=== PATIENT | male | born 1945 | race Caucasian/White ===

== ENCOUNTER 2024-01-24 23:51 | Inpatient (IN) | payer MEDICARE, OTHER, MEDICAID, SELFPAY ==
--- NOTE | ~2024-01-24 | XR_ITS ---
XR chest 2V 01/25/2024 01:26 Indication: Shortness of breath Procedure: PA and lateral views of the chest Comparison: 05/12/2019 Findings: Heart size normal. Mild interstitial infiltrates with small pleural effusions mild peribron chial thickening. Calcified subcarinal lymph nodes, consistent with chronic granulomatous disease. No acute osseous abnormality. Impression: 1: Probable mild interstitial edema. Reviewed, dictated and finalized at location B. Impression: 1: Probable mild interstitial edema.
--- NOTE | ~2024-01-24 | CT_ITS ---
EXAMINATION: CTA chest PE protocol DATE: 01/25/2024 06:12 CDT INDICATION: Hypoxia. Elevated d-dimer. TECHNIQUE: Computed tomographic angiography (CTA) of the chest was performed with 100 mL Omnipaque-35 0 intravenous contrast. The dose-length product was 319.47 mGy-cm. Maximum intensity projection 3D-re constructions of the aorta and other arteries were constructed by the technologist on a separate work station. Automated exposure control and iterative reconstruction technique were employed. COMPARISON: None. FINDINGS: Moderate pleural effusions. Study technically adequate without evidence for pulmonary embol ism. Dependent atelectasis. Cardiomegaly. Calcified subcarinal lymph nodes, consistent with chronic g ranulomatous disease. Upper abdomen is unremarkable. Mild mediastinal lymphadenopathy, likely reactiv e. There are patchy groundglass opacities with interlobular septal thickening in the lung bases, suspici ous for edema. IMPRESSION: 1. Probable mild interstitial edema. 2: Moderate pleural effusions. 3: Mediastinal lymphadenopathy, likely reactive. Reviewed, dictated and finalized at location B.
--- NOTE | ~2024-01-24 | US_ITS ---
EXAMINATION: US renal BI DATE: 01/27/2024 20:22 INDICATION: Renal failure TECHNIQUE: Multiple ultrasound grayscale images of the kidneys were obtained. COMPARISON: None. FINDINGS: The right kidney measures 9.3 x 5.5 x 5.0 cm. The left kidney measures 9.9 x 5.5 x 5.8 cm. The kidney s demonstrate normal echogenicity. 2.4 cm anechoic cyst at the lower pole of the left kidney. There i s no hydronephrosis in either kidney. No stones identified. The bladder is normal. IMPRESSION: 1. 2.4 cm left renal cyst. Otherwise normal kidneys without hydronephrosis. Reviewed, dictated and finalized at location A.
[2024-01-24 23:54] VITALS: BP 176/71; PULSE 77; RESP 18; TEMP 36.4; O2SAT 94
[2024-01-25] VITALS (20 sets, daily range): BP systolic 133–173; BP diastolic 66–127; PULSE 61–72; RESP 12–26; TEMP 36.3–36.8; O2SAT 92–100; BMI 25.8
--- NOTE | 2024-01-25 | ECHO_ITS ---
Patient Info Name: Mata Arevalo Age: 78 years : 1945 Gender: Male Ht: 68 in Wt: 169 lbs BSA: 1.93 m2 HR: 72 bpm BP: 159 / 69 mmHg Technical Quality: Good Exam Date: 01/25/2024 4:25 PM Exam Location: Echo Lab Patient Status: Inpatient Admit Date: 01/25/2024 Staff Ordering Physician: Nova Carlos MD Timing Adjuster: Gonzalez García RDCS Attending Provider: Nova Carlos MD Exam Type: CA echo doppler color flow Study Info Indications - heart failure Complete two-dimensional, color flow and Doppler transthoracic echocardiogram is performed. Summary 1. Complete two-dimensional, color flow and Doppler transthoracic echocardiogram is performed. 2. Left ventricular systolic function is mildly globally reduced, estimated at 45-50%. 3. Left ventricular chamber dimension is mildly enlarged. 4. The left ventricular diastolic function is abnormal. 5. E/e' 13 is mildly elevated. 6. Global longitudinal strain is abnormal at -14.1%. 7. Left atrial chamber dimension is mildly enlarged. 8. Right atrial chamber dimension is mildly enlarged. 9. There is moderate aortic valve sclerosis. 10. There is trace aortic valve regurgitation. 11. There is mild mitral valve regurgitation. 12. There is trace tricuspid valve regurgitation. 13. No pulmonary hypertension, estimated pulmonary arterial systolic pressure is 21 mmHg. 14. There is trace pulmonic regurgitation. Left Ventricle E/e' 13 is mildly elevated. Global longitudinal strain is abnormal at -14.1%. Left ventricular systolic function is mildly globally reduced, estimated at 45-50%. Left ventricular chamber dimension is mildly enlarged. The left ventricular diastolic function is abnormal. Right Ventricle Right ventricular systolic function is normal and with normal TAPSE 2.5 cm. Right ventricular chamber dimension is normal. Left Atria Left atrial chamber dimension is mildly enlarged. Right Atria Right atrial chamber dimension is mildly enlarged. Aortic Valve The aortic valve is trileaflet. There is moderate aortic valve sclerosis. There is no aortic valve stenosis. There is trace aortic valve regurgitation. Pulmonic Valve There is trace pulmonic regurgitation. Mitral Valve There is no mitral valve stenosis. There is mild mitral valve regurgitation. Tricuspid Valve There is trace tricuspid valve regurgitation. No pulmonary hypertension, estimated pulmonary arterial systolic pressure is 21 mmHg. Pericardium/Pleural There is no pericardial effusion. Inferior Vena Cava Normal inferior vena cava with >50% collapse upon inspiration consistent with normal right atrial pressure, 5 mmHg. Aorta The aortic root size at the sinus of Valsalva is normal. Left Ventricular Outflow Tract Name Value Normal LVOT 2D LVOT Diameter 2.3 cm LVOT Doppler LVOT Peak Gradient 4 mmHg LVOT Mean Gradient 2 mmHg LVOT VTI 22 cm LVOT VTI/AV VTI Ratio 0.7 LVOT Stroke Volume 88 ml LVOT CO 6.1 l/min LVOT CI 3.2 l/min/m2 Pulmonic Valve -
--- NOTE | 2024-01-25 00:26 | ECG_ITS ---
Test Date: 2024-01-25 03:22:57 Measurements Intervals [place] Rate: 62 P: 101 NH: 232 QRS: -13 QRSD: 117 T: 32 QT: 462 QTc: 472 Interpretive Statements SINUS RHYTHM WITH FIRST DEGREE AV BLOCK POSSIBLE ANTEROSEPTAL MYOCARDIAL INFARCTION , OF INDETERMINATE AGE BORDERLINE ST ABNORMALITY- LATERAL LEADS BASELINE ARTIFACT- I, III, AVR, AVL ABNORMAL ECG No previous ECG available for comparison Electronically Signed On 01-25-2024 07:45:11 CDT by Edin Do D.O.
--- NOTE | 2024-01-25 02:27 | ED.SOB ---
HPI - SOB/Dyspnea General Chief Complaint: Shortness of Breath/Dyspnea Stated Complaint: SOB x days Time Seen by Provider: 01/25/24 02:23 Source: patient and family Mode of arrival: EMS Limitations: no limitations History of Present Illness HPI Narrative: Patient presents with shortness of breath for few days. Has been having some coughing spasms. Denies orthopnea. Baseline lung injury both from scar tissue from [place] with some possible superimposed tuberculosis. He has some unilateral leg swelling which has been chronic for the last year ever since having right hip fracture status post surgery. He had worsening lower extremity edema on Saturday for which he saw his primary care physician Viji Renteria through the [facility] in [place] and she prescribed him a diuretic but he has not yet received this due to issues with obtaining prescriptions through the OR. EMS noted that he had wheezes and was 94% on room air. They gave a DuoNeb treatment and oxygenation improved to 97%. He has a rash on his right inner arm. He is on apixaban as anticoagulation. He denies any chest pain. History of heart failure and ischemic heart disease with a previous reported ejection fraction of 30% per family member/friend presents with him but she reports that it improved 45% after he he was hospitalized and had undergone amiodarone and cardioversion. He has a history of kidney disease and heart disease. He has a history of diabetes mellitus, previously on Trulicity but change to Ozempic. Support member is adamant that patient not receive insulin as he had responded with profound hypoglycemia in the 20s when previously administered. Related Data Home Medications Medication Instructions Recorded Confirmed amiodarone 200 mg tablet (Pacerone) 200 mg PO DAILY 01/25/24 01/25/24 apixaban 5 mg tablet 5 mg PO BID 01/25/24 01/25/24 glimepiride 4 mg tablet 4 mg PO DAILY 01/25/24 01/25/24 metoprolol succinate 200 mg 100 mg PO DAILY 01/25/24 01/25/24 tablet,extended release 24 hr polyethylene glycol 3350 17 gram 17 g PO QAM PRN Constipation 01/25/24 01/25/24 oral powder packet (Miralax) semaglutide 1 mg/dose (2 mg/1.5 1 mg subcut WEEKLY 01/25/24 01/25/24 mL) subcutaneous pen injector trazodone 100 mg tablet 100 mg PO HS 01/25/24 01/25/24 vitamin B complex-vitamin C-folic 1 tablet PO DAILY 01/25/24 01/25/24 acid 1 mg tablet Allergies Allergy/AdvReac Type Severity Reaction Status Date / Time No Known Allergies Allergy Verified 01/15/23 12:24 [facility] Past Medical History Medical History Hyperlipidemia Hypertension Intertrochanteric fracture Pancreatitis Type 2 diabetes mellitus Surgical History Surgical History H/O eye surgery Family History Family History Mother Diabetes mellitus Breast cancer Father Diabetes mellitus Sibling Diabetes mellitus Cerebrovascular accident Sibling Diabetes mellitus Pneumonia Sibling Diabetes mellitus CHF (congestive heart failure) Sibling Diabetes mellitus Cardiomegaly Social History Social History Smoking status: Never smoker Alcohol intake: never Substance use: never Substance use type: does not use Do You Feel Safe in your Home?: Yes Lack of Transportation: No Lack of Food: Never True Current Housing: I Have Housing Concerned About Future Housing: No Difficulty Paying Gas/Electric Bills: No Difficulty Paying for Meds: No Currently Unemployed: No Education: Decline to Answer Difficulty w/ Childcare or Family Care: No Living arrangements: with family Occupation/Education: retired Gender identity (if verbalized by the patient): Male Spiritual care concerns: No Agree to blood products: Yes Exam Narrative: GENERA
[2024-01-25 02:31] LABS: Basophils Percent Auto 0.3 % (0.2-1.2); Eosinophils Absolute Auto 0.1 K/mm3 (0-0.3); Eosinophils Percent Auto 0.6 % (0-4.4); Hematocrit 34.7 % (42.0-52.0); Hemoglobin 11.6 g/dL (14.0-18.0); Immature Granulocyte Absolute 0.07 K/mm3 (0.00-0.031); Immature Granulocyte Percent A 0.6 % (0-0.5); Lymphocytes Absolute Auto 0.73 K/mm3 (0.9-3.2); Lymphocytes Percent Auto 6.4 % (18.3-44.2); Mean Corpuscular HGB Conc 33.4 g/dl (32-36); Mean Corpuscular Volume 98.6 fl (80-100); Mean Platelet Volume 10.8 fl (7.4-10.4); Monocytes Absolute Auto 0.8 K/mm3 (0.1-0.6); Monocytes Percent Auto 7.1 % (2.6-8.5); Neutrophils Absolute Auto 9.8 K/mm3 (1.3-6.7); Platelet Count Result 184 k/mm3 (150-375); Red Blood Count 3.52 M/mm3 (4.6-6.20); Red Cell Distribution Width 12.2 % (11.5-14.5); White Blood Count 11.5 K/mm3 (4.5-10.0)
[2024-01-25 02:43] LABS: Alanine Aminotransferase 18 U/L (6-50); Albumin Level 4.1 g/dL (3.5-5.1); Alkaline Phosphatase 129 U/L (38-126); Anion Gap 9 mmol/L (4-12); Aspartate Amino Transferase 24 U/L (17-59); Bilirubin,Total 0.5 mg/dL (0.2-1.3); Blood Urea Nitrogen 34 mg/dL (9-20); Calcium 9.1 mg/dL (8.4-10.2); Carbon Dioxide 28 mmol/L (22-30); Chloride 99 mmol/L (98-107); Estimated CRCL calculation 29 ml/min; Estimated Glomerular Filt Rate 35; Glucose 284 mg/dL (65-110); Potassium 4.7 mmol/L (3.4-5.0); Sodium 136 mmol/L (137-145)
[2024-01-25 03:26] LABS: INR 1.4; Prothrombin Time 17.3 Seconds (11.1-14.7)
[2024-01-25 03:27] LABS: Magnesium 2.4 mg/dL (1.6-2.3); Partial Thromboplastin Time 38.3 Seconds (22.3-36.8)
[2024-01-25 03:29] LABS: D Dimer 0.57 ug/mL (<0.48)
[2024-01-25 03:37] LABS: NT Pro B Type Natriuretic Pept 7810 pg/mL (19.9-100)
[2024-01-25] MEDS: SODIUM CHLORIDE 0.9% IV 1,000 ML 999 ML IV CONT (03:56)
[2024-01-25 04:15] LABS: Influenza A QL RT-PCR Negative (Negative); Influenza B QL RT-PCR Negative (Negative); RSV RNA, RT-PCR Negative (Negative); SARS-CoV-2 RNA PCR Negative (Negative)
[2024-01-25] MEDS: FUROSEMIDE INJ 40 MG/4 ML VIAL IV PUSH (04:35)
--- NOTE | 2024-01-25 08:11 | PC.NURSE ---
0715: Assumed care of pt. Per RN report pt received 250ml normal saline IV bolus tolerated well. Pt with diminished lung sounds in bilateral bases. Ambulated to bathroom with x1 assist. Pt states usually uses a walker.
--- NOTE | 2024-01-25 10:26 | PC.NURSE ---
This patient, Mata Arevalo, was admitted to [facility] Surg Room 330-02. Patient/family oriented to hospital policies and general routines including ID bracelet, bed and alarms, visiting hours, pain management, procedures, bathroom and other care routines, personal items, smoking policy, room service/diet, and visiting hours. Information on how to activate the Rapid Response Team has been discussed. Patient/Family are encouraged to report perceived risks to care and to ask questions if they do not understand what they are told or what they should do.
--- NOTE | 2024-01-25 15:52 | PM.IMHP ---
H&P: HPI History of Present Illness Date/Time: 01/25/24 15:52 Chief Complaint: Shortness of breath Narrative: This is a very pleasant 78-year-old male with a past medical history AFib on apixaban, CKD, hypothyroidism, constipation, hyperlipidemia, hypertension, [id number] diabetes mellitus, heart failure borderline reduced ejection fraction with 45-50% EF and diastolic dysfunction on surface echo on 01/25/2024. The patient is a patient of the [place]. the patient has been off of Lasix but developed shortness of breath. He was prescribed Lasix by his primary doctor at the [facility] but it has not yet been delivered to his home. He subsequently presents to [place] with the complaint of shortness of breath. He is admitted on 01/25/2024 for acute decompensated heart failure. Review of Systems Review of Systems: All systems reviewed & are unremarkable except as noted in HPI and below (Subjective) PMFSH Past Medical History Medical History Intertrochanteric fracture Surgical History Surgical History H/O eye surgery Family History Family History Mother Diabetes mellitus Breast cancer Father Diabetes mellitus Sibling Diabetes mellitus Cerebrovascular accident Sibling Diabetes mellitus Pneumonia Sibling Diabetes mellitus CHF (congestive heart failure) Sibling Diabetes mellitus Cardiomegaly Social History Social History (Updated 01/25/24 @ 10:27 by Nelsy Crooks RN) Smoking status: Never smoker Alcohol intake: never Substance use: never Substance use type: does not use Do You Feel Safe in your Home?: Yes Lack of Transportation: No Lack of Food: Never True Current Housing: I Have Housing Concerned About Future Housing: No Difficulty Paying Gas/Electric Bills: No Difficulty Paying for Meds: No Currently Unemployed: No Education: Decline to Answer Difficulty w/ Childcare or Family Care: No Living arrangements: with family Occupation/Education: retired Gender identity (if verbalized by the patient): Male Spiritual care concerns: No Agree to blood products: Yes Meds Home Medications and Allergies Home Medications Medication Instructions Recorded Confirmed Type furosemide 20 mg tablet 20 mg PO DAILY #30 tabs 05/19/19 01/25/24 Rx acetaminophen 325 mg tablet (Mapap 975 mg PO Q6H PRN Pain Rated 5 Or 01/13/23 01/25/24 Rx (acetaminophen)) Less #90 tabs diabetic supplies, miscellan. #1 ea 01/13/23 01/25/24 Rx fluticasone propionate 50 2 spray intranasal HS #16 grams 01/13/23 01/25/24 Rx mcg/actuation nasal spray,suspension levothyroxine 50 mcg tablet 50 mcg PO DAILY@0630 #30 tabs 01/13/23 01/25/24 Rx (Synthroid) lidocaine 4 % topical patch 2 patch transdermal DAILY #14 ea 01/13/23 01/25/24 Rx (Lidocaine Pain Relief) sennosides 8.6 mg-docusate sodium 1 tab-cap PO BID #30 tabs 01/13/23 01/25/24 Rx 50 mg tablet (Senokot-S) amiodarone 200 mg tablet (Pacerone) 200 mg PO DAILY 01/25/24 01/25/24 History apixaban 5 mg tablet 5 mg PO BID 01/25/24 01/25/24 History glimepiride 4 mg tablet 4 mg PO DAILY 01/25/24 01/25/24 History metoprolol succinate 200 mg 100 mg PO DAILY 01/25/24 01/25/24 History tablet,extended release 24 hr polyethylene glycol 3350 17 gram 17 g PO QAM PRN Constipation 01/25/24 01/25/24 History oral powder packet (Miralax) semaglutide 1 mg/dose (2 mg/1.5 1 mg subcut WEEKLY 01/25/24 01/25/24 History mL) subcutaneous pen injector trazodone 100 mg tablet 100 mg PO HS 01/25/24 01/25/24 History vitamin B complex-vitamin C-folic 1 tablet PO DAILY 01/25/24 01/25/24 History acid 1 mg tablet Allergies Allergy/AdvReac Type Severity Reaction Status Date / Time No Known Allergies Allergy Verified 01/15/23 12:24 Vital Signs Vital Signs -
[2024-01-25 16:59] LABS: Glucose Point of Care 285 mg/dl (65-105)
[2024-01-25] MEDS: SENNA/DOCUSATE SODIUM TABLET 1 TAB PO (17:30)
[2024-01-25] MEDS: METOPROLOL SUCCINATE EXT REL 100 MG TABCR PO (17:30)
[2024-01-25] MEDS: INSULIN ASPART (*BKC) 100 UNITS/ML SUB-Q (17:30)
[2024-01-25] MEDS: FUROSEMIDE INJ 40 MG/4 ML VIAL 20 MG IV PUSH (17:31)
[2024-01-25] MEDS: traZODone HCL 50 MG TABLET 100 MG PO (20:35)
[2024-01-25] MEDS: APIXABAN 5 MG TABLET PO (20:35)
[2024-01-25] MEDS: FLUTICASONE PROPIONATE 0.05% NA SPR 16 GM BTL (*BKC) 2 SPRAY NASAL (20:37)
[2024-01-25 21:09] LABS: Glucose Point of Care 200 mg/dl (65-105)
[2024-01-26] VITALS (12 sets, daily range): BP systolic 98–152; BP diastolic 50–70; PULSE 52–88; RESP 18; TEMP 36.3–37.1; O2SAT 91–96
[2024-01-26] MEDS: LEVOTHYROXINE SODIUM 50 MCG TABLET PO (05:16)
[2024-01-26 06:22] LABS: Basophils Percent Auto 0.6 % (0.2-1.2); Eosinophils Absolute Auto 0.2 K/mm3 (0-0.3); Eosinophils Percent Auto 3.2 % (0-4.4); Hematocrit 32.8 % (42.0-52.0); Hemoglobin 10.8 g/dL (14.0-18.0); Immature Granulocyte Absolute 0.03 K/mm3 (0.00-0.031); Immature Granulocyte Percent A 0.4 % (0-0.5); Lymphocytes Absolute Auto 1.03 K/mm3 (0.9-3.2); Lymphocytes Percent Auto 14.2 % (18.3-44.2); Mean Corpuscular HGB Conc 32.9 g/dl (32-36); Mean Corpuscular Hemoglobin 32.8 pg (26-34); Mean Corpuscular Volume 99.7 fl (80-100); Mean Platelet Volume 11.2 fl (7.4-10.4); Monocytes Absolute Auto 0.8 K/mm3 (0.1-0.6); Monocytes Percent Auto 10.7 % (2.6-8.5); Neutrophils Absolute Auto 5.2 K/mm3 (1.3-6.7); Neutrophils Percent Auto 70.9 % (45.5-73.1); Platelet Count Result 169 k/mm3 (150-375); Red Blood Count 3.29 M/mm3 (4.6-6.20); Red Cell Distribution Width 12.4 % (11.5-14.5); White Blood Count 7.3 K/mm3 (4.5-10.0)
[2024-01-26 06:37] LABS: Anion Gap 7 mmol/L (4-12); Blood Urea Nitrogen 35 mg/dL (9-20); Calcium 8.9 mg/dL (8.4-10.2); Carbon Dioxide 31 mmol/L (22-30); Chloride 99 mmol/L (98-107); Estimated CRCL calculation 24 ml/min; Estimated Glomerular Filt Rate 28; Glucose 175 mg/dL (65-110); Magnesium 2.2 mg/dL (1.6-2.3); Sodium 137 mmol/L (137-145)
[2024-01-26 07:13] LABS: Procalcitonin 0.1 ng/mL
[2024-01-26 07:24] LABS: Glucose Point of Care 187 mg/dl (65-105)
[2024-01-26] MEDS: METOPROLOL SUCCINATE EXT REL 100 MG TABCR PO (09:46)
[2024-01-26] MEDS: VITAMIN B CMPLX/VIT C/FOLIC AC 1 CAPSULE 1 CAP PO (09:46)
[2024-01-26] MEDS: APIXABAN 5 MG TABLET PO ×2 (09:47→21:09)
[2024-01-26] MEDS: SENNA/DOCUSATE SODIUM TABLET 1 TAB PO (09:47)
[2024-01-26] MEDS: AMIODARONE HCL 200 MG TABLET PO (09:47)
[2024-01-26] MEDS: LIDOCAINE 5% PATCH 2 PATCH TRANSDERM (09:49)
[2024-01-26 12:07] LABS: Glucose Point of Care 216 mg/dl (65-105)
[2024-01-26] MEDS: INSULIN ASPART (*BKC) 100 UNITS/ML SUB-Q ×2 (12:48→18:27)
[2024-01-26 16:33] LABS: Glucose Point of Care 210 mg/dl (65-105)
--- NOTE | 2024-01-26 18:03 | PM.IMPN ---
Progress Note: A&P Assessment and Plan (1) Leukocytosis: Code(s): D72.829 - Elevated white blood cell count, unspecified Status: Acute (2) Acute kidney injury superimposed on CKD: Code(s): N17.9 - Acute kidney failure, unspecified; N18.9 - Chronic kidney disease, unspecified Status: Acute (3) Pseudohyponatremia: Code(s): R79.89 - Other specified abnormal findings of blood chemistry Status: Acute (4) Acute exacerbation of CHF (congestive heart failure): Qualifiers: Heart failure type: unspecified Qualified Code(s): I50.9 - Heart failure, unspecified Code(s): I50.9 - Heart failure, unspecified Status: Acute Plan This is a very pleasant 78-year-old male with a past medical history AFib on apixaban, CKD, hypothyroidism, constipation, hyperlipidemia, hypertension, [id number] diabetes mellitus, heart failure borderline reduced ejection fraction with 45-50% EF and diastolic dysfunction on surface echo on 01/25/2024. The patient is a patient of the [place]. the patient has been off of Lasix but developed shortness of breath. He was prescribed Lasix by his primary doctor at the [place] but it has not yet been delivered to his home. He subsequently presents to [place] [facility] with the complaint of shortness of breath. He is admitted on 01/25/2024 for acute decompensated heart failure. BNP on admission 6999January 25: Leukocytosis resolved. Still has a cough but it is improved. Quad viral screen on admission negative. Hypertonic hyponatremia resolved. Continue Accu-Cheks and insulin sliding scale. The patient's acute decompensation has resolved however now he has developed an ALYSSA and CKD. Serum creatinine on admission 1.9 and now 2.3. His baseline appears to be around 1.5-1.9 in 2022. Will conduct further workup with UA, urine eosinophilic, urine creatinine and urea. Patient will need to stay another day to trend renal function. Obviously, hold the Lasix. He is not on spironolactone or Jardiance so blood pressure and GFR allowing we could start this prior to discharge with a combination of p.r.n. Lasix. Monitor urine output and daily weights. Full code. Cardiac diabetic diet. Apixaban. Stable on medical floor. Subjective Date/time seen: 01/26/24 18:03 Interval history: No acute overnight events. Patient believes he is breathing better. They his daughter is present in the room. Daughter reports his swelling is greatly improved. Patient denies a dry cough still but it is improved. Review of Systems Review of Systems: All systems reviewed & are unremarkable except as noted in HPI and below (Subjective) Exam Const: General: comfortable and no acute distress Other: A&O x3. Eyes: Pupils: Equal, round and reactive pupils present Neck: Neck: supple Resp: Effort & Inspection: normal respiratory effort Auscultation: clear to auscultation bilaterally Cardio: Rate: regular rate Rhythm: regular rhythm Heart sounds: no gallops, no murmurs and no rubs GI: GI Palp: Yes Soft to palpation and No Tenderness to palpation present (GI) Extrem: General: no edema Objective Data Vital Signs Vital Signs: Vital Signs - 24 hr 01/25/24 20:00 01/25/24 22:00 01/25/24 20:00 Temperature 98.3 F Pulse Rate 66 61 Respiratory Rate 16 Blood Pressure 159/84 H Pulse Oximetry 94 Oxygen Delivery Room Air 01/26/24 00:00 01/26/24 04:00 01/26/24 05:15 Temperature 97.3 F L Pulse Rate 58 L 52 L 60 Respiratory Rate 18 Blood Pressure 98/50 L Pulse Oximetry 91 Oxygen Delivery 01/26/24 09:45 01/26/24 09:46 01/26/24 09:47 Temperature Pulse Rate 60 60 Respiratory Rate Blood Pressure 140/70 Pulse Oximetry Oxygen Delivery 01/26/24 08:00 01/26/24 12:02 01/26/24 14:00 Temperature 98.8 F Pulse Rate 58 L 61 88 Respiratory Rate 18 Blood Pressure 133/67 Pulse Oximetry 91 Oxygen Delivery Intake/Output
[2024-01-26 20:43] LABS: Appearance Urine Clear (Clear); Bacteria Urine None Seen /hpf; Bilirubin Urine Negative (Negative); Blood Urine Negative (Negative); Color Urine Yellow (Yellow); Glucose Urine UA Trace mg/dL (Negative); Ketones Urine Negative (Negative); Leukocyte Esterase Ur Negative LEU/UL (Negative); Nitrate Urine Negative (Negative); Non Pathogenic Casts 0-2; Protein Urine 1+ mg/dL (Negative); Specific Grav Ur 1.021 (1.001-1.035); Squamous Epithelial Cell Urine None Seen /hpf (Few); WBC Urine 0-5 /hpf (0-3)
[2024-01-26 20:45] LABS: Add Urine Microscopic? YES; Creatinine Urine 146.1 mg/dL; Urea Random Urine 774 MG/DL
[2024-01-26 20:56] LABS: Glucose Point of Care 195 mg/dl (65-105)
[2024-01-26] MEDS: traZODone HCL 50 MG TABLET 100 MG PO (21:09)
[2024-01-26] MEDS: FLUTICASONE PROPIONATE 0.05% NA SPR 16 GM BTL (*BKC) 2 SPRAY NASAL (21:09)
[2024-01-26] MEDS: TRIAMCINOLONE ACET 0.1% OINT 15 GM TUBE 1 APPLIC TOPICAL (21:09)
[2024-01-26 21:12] LABS: Eosinophil Urine None Seen % (None Seen); Urine Eos QC 2nd Tech Confirmed
[2024-01-27] VITALS (11 sets, daily range): BP systolic 127–159; BP diastolic 51–66; PULSE 53–63; RESP 14–20; TEMP 36.4–37.1; O2SAT 94–98
[2024-01-27 05:47] LABS: Hematocrit 31.9 % (42.0-52.0); Hemoglobin 10.6 g/dL (14.0-18.0); Mean Corpuscular HGB Conc 33.2 g/dl (32-36); Mean Corpuscular Hemoglobin 32.8 pg (26-34); Mean Corpuscular Volume 98.8 fl (80-100); Platelet Count Result 172 k/mm3 (150-375); Red Blood Count 3.23 M/mm3 (4.6-6.20); Red Cell Distribution Width 12.2 % (11.5-14.5); White Blood Count 6.5 K/mm3 (4.5-10.0)
[2024-01-27] MEDS: LEVOTHYROXINE SODIUM 50 MCG TABLET PO (05:49)
[2024-01-27 06:00] LABS: Anion Gap 6 mmol/L (4-12); Blood Urea Nitrogen 39 mg/dL (9-20); Calcium 8.6 mg/dL (8.4-10.2); Carbon Dioxide 30 mmol/L (22-30); Chloride 100 mmol/L (98-107); Estimated CRCL calculation 23 ml/min; Estimated Glomerular Filt Rate 26; Glucose 163 mg/dL (65-110); Magnesium 2.3 mg/dL (1.6-2.3); Potassium 3.9 mmol/L (3.4-5.0); Sodium 136 mmol/L (137-145)
[2024-01-27 08:37] LABS: Glucose Point of Care 178 mg/dl (65-105)
[2024-01-27] MEDS: VITAMIN B CMPLX/VIT C/FOLIC AC 1 CAPSULE 1 CAP PO (08:48)
[2024-01-27] MEDS: APIXABAN 5 MG TABLET PO ×2 (08:48→20:21)
[2024-01-27] MEDS: AMIODARONE HCL 200 MG TABLET PO (08:48)
[2024-01-27] MEDS: SENNA/DOCUSATE SODIUM TABLET 1 TAB PO ×2 (08:48→17:17)
[2024-01-27] MEDS: LIDOCAINE 5% PATCH 2 PATCH TRANSDERM (08:49)
[2024-01-27] MEDS: METOPROLOL SUCCINATE EXT REL 100 MG TABCR PO (08:49)
[2024-01-27] MEDS: TRIAMCINOLONE ACET 0.1% OINT 15 GM TUBE 1 APPLIC TOPICAL ×2 (08:57→20:22)
[2024-01-27 11:59] LABS: Glucose Point of Care 294 mg/dl (65-105)
[2024-01-27] MEDS: INSULIN ASPART (*BKC) 100 UNITS/ML SUB-Q ×2 (12:03→20:21)
--- NOTE | 2024-01-27 14:36 | PM.CNNEP ---
Assessment and Plan Assessment and plan (1) CKD stage 3b, GFR 30-44 ml/min: Code(s): N18.32 - Chronic kidney disease, stage 3b Status: Acute Assessment and Plan: the patient has chronic kidney disease stage 3. It looks like his GFR has been running in the 30s and 40s for about the last year before he came in this time. Before year ago it was 60. It is unclear what is causing his chronic kidney disease. He of course does have diabetes and hypertension and also has AFib and hyperlipidemia so could have vascular disease in the kidneys as well. However usually the kidney function does not deteriorate this quickly, especially since his blood pressure and sugars have been relatively well controlled. There are other causes of kidney disease as well including glomerulonephritis, interstitial nephritis, infiltrative diseases, and obstruction. will check serology, immunofixation, CPK, urine protein to creatinine ratio, and a renal ultrasound. (2) ALYSSA (acute kidney injury): Code(s): N17.9 - Acute kidney failure, unspecified Status: Acute Assessment and Plan: The patient has an acutely higher creatinine this admission. The patient did receive contrast. He has a bland sediment. Most likely this is contrast nephropathy. There are other causes of course including obstruction interstitial nephritis etc. but with bland urine no rash no fever and no eosinophilia the likelihood is low. Will check urine electrolytes, renal ultrasound, and a CK. (3) Hypertension: Code(s): I10 - Essential (primary) hypertension Status: Acute Assessment and Plan: Systolic is running between 98 and 152. Will follow going forward and adjust meds as needed (4) Hyperlipidemia: Code(s): E78.5 - Hyperlipidemia, unspecified Status: Acute Assessment and Plan: the patient is not on a statin (5) Type 2 diabetes mellitus: Code(s): E11.9 - Type 2 diabetes mellitus without complications Status: Acute Assessment and Plan: the patient is on Accu-Cheks and sliding-scale insulin (6) Congestive heart failure: Code(s): I50.9 - Heart failure, unspecified Status: Acute Assessment and Plan: GFR is a little bit low, in the 40s. He is on metoprolol for this. History of Present Illness Reason for Consult Consult date: 01/27/24 Chief Complaint Chief complaint: Acute on Chronic Heart Failure Exac W Pleural Effu History of Present Illness Narrative: Kristopher is a very pleasant 78-year-old gentleman who has multiple medical problems including chronic kidney disease, hypothyroidism, constipation, congestive heart failure with an EF of 45-50% plus diastolic dysfunction, hyperlipidemia, hypertension, diabetes. The patient says he was doing well until a few days before admission when he started getting short of breath. His shortness of breath gradually worsened over the days and so he came to the ER because of this. He is evaluated in the ER and was found to have mild anemia, a chest x-ray showing mild interstitial edema, a creatinine of 1.9, and a BNP of 7810. It was worried that he might have a pulmonary embolus so he had a CT angio. This was negative. He was admitted to the floor and given diuretics. His creatinine yelena from 1.9-2.4 so renal consultation was requested. The patient says he has never had kidney disease before. However, he has had a creatinine of around 1.5-2 since December of 2022. He denies any bloody urine, foamy urine, kidney stones, or bladder infections. He does not have any pain with urination. He does not take any nonsteroidal anti-inflammatory agents. He has not had any changes in his medications lately. Review of Systems Constitutional: Constitutional: Reports no additional constitutional complaints Eyes: Eyes: Reports no additional eye complaints ENT: Reports system reviewed and no additional complaints, ex
--- NOTE | 2024-01-27 15:25 | PM.IMPN ---
Progress Note: A&P Assessment and Plan (1) Leukocytosis: Qualifiers: Leukocytosis type: unspecified Qualified Code(s): D72.829 - Elevated white blood cell count, unspecified Code(s): D72.829 - Elevated white blood cell count, unspecified Status: Acute (2) Acute kidney injury superimposed on CKD: Code(s): N17.9 - Acute kidney failure, unspecified; N18.9 - Chronic kidney disease, unspecified Status: Acute (3) Pseudohyponatremia: Code(s): R79.89 - Other specified abnormal findings of blood chemistry Status: Acute (4) Acute exacerbation of CHF (congestive heart failure): Qualifiers: Heart failure type: unspecified Qualified Code(s): I50.9 - Heart failure, unspecified Code(s): I50.9 - Heart failure, unspecified Status: Acute Plan This is a very pleasant 78-year-old male with a past medical history AFib on apixaban, CKD, hypothyroidism, constipation, hyperlipidemia, hypertension, [id number] diabetes mellitus, heart failure borderline reduced ejection fraction with 45-50% EF and diastolic dysfunction on surface echo on 01/25/2024. The patient is a patient of the [facility]. the patient has been off of Lasix but developed shortness of breath. He was prescribed Lasix by his primary doctor at the [facility] but it has not yet been delivered to his home. He subsequently presents to [place] [facility] with the complaint of shortness of breath. He is admitted on 01/25/2024 for acute decompensated heart failure. BNP on admission 7000 01/26: Leukocytosis and Hypertonic Hypernatremia resolved. Patient acute decompensation has resolved but lasix is on hold due to increase in creatine ( 1.90> 2.30> 2.40). We believe patient to be in ALYSSA on CKD due to contrast vs lasix . Nephrology is consulted and ordered to check serology, immunofixation, CPK, urine protein to creatinine ratio, and a renal ultrasound. As mentioned by Supervisor Engraving its unclear why his GFR running in 30s and 40s which has fallen from 60s from last year in spite of moderately controlled HTN and DM.Discussed with Supervisor Engraving who agrees continuing holding Lasix.Monitor urine output and daily weights.Continue trend Cr and BNP. Will consider Jardiance and Spironolactone once renal function recovers. Upon discharge patient needs to be followed by PCP ,Supervisor Engraving , and Agriculture Science Teacher. Full code. Cardiac diabetic diet. Apixaban. Stable on medical floor. Subjective Date/time seen: 01/27/24 15:25 Interval history: As per nursing no acute events in the night. Patient reports he is able to breath better than when he got admitted. Patient endorse dry cough. . Review of Systems Review of Systems: All systems reviewed & are unremarkable except as noted in HPI and below (Subjective) Exam Const: General: comfortable and no acute distress Other: A&O x3. Eyes: Pupils: Equal, round and reactive pupils present Neck: Neck: supple Resp: Effort & Inspection: normal respiratory effort Auscultation: clear to auscultation bilaterally Other: Scant crackles bilaterally Cardio: Rate: regular rate Rhythm: regular rhythm Heart sounds: no gallops, no murmurs and no rubs Neuro: Cranial nerves: Yes Equal, round and reactive pupils present Extrem: General: no edema Objective Data Vital Signs Vital Signs: Vital Signs - 24 hr 01/26/24 16:02 01/26/24 21:02 01/26/24 20:00 Temperature 98.1 F Pulse Rate 58 L 61 59 L Respiratory Rate 18 Blood Pressure 152/68 H Pulse Oximetry 96 Oxygen Delivery 01/26/24 20:00 01/27/24 00:00 01/27/24 04:00 Temperature Pulse Rate 61 55 L 58 L Respiratory Rate 18 Blood Pressure Pulse Oximetry 96 Oxygen Delivery Room Air 01/27/24 05:17 01/27/24 08:48 01/27/24 08:49 Temperature 98.3 F Pulse Rate 59 L 63 62 Respiratory Rate 17 Blood Pressure 127/53 L Pulse Oximetry 98 Oxygen Delivery 01/27/24 08:00 01/27/24 12:00 Temp
[2024-01-27 16:33] LABS: Glucose Point of Care 171 mg/dl (65-105)
[2024-01-27 16:46] LABS: Creatine Kinase 223 U/L (55-170)
[2024-01-27 16:54] LABS: Erythrocyte Sedimentation Rate 78 mm/hr (0-20)
[2024-01-27 16:55] LABS: Complement C3 92 mg/dL (88-165)
[2024-01-27 18:22] LABS: Creatinine Urine 83.2 mg/dL; Total Protein Urine Random 18 mg/dL; Ur Ttl Prot Creatinine Ratio 0.22 mg/mg (0-0.20); Urea Random Urine 635 MG/DL
[2024-01-27 18:25] LABS: Sodium Urine Random 39 meq/L
[2024-01-27 20:21] LABS: Glucose Point of Care 263 mg/dl (65-105)
[2024-01-27] MEDS: FLUTICASONE PROPIONATE 0.05% NA SPR 16 GM BTL (*BKC) 2 SPRAY NASAL (20:21)
[2024-01-27] MEDS: traZODone HCL 50 MG TABLET 100 MG PO (20:21)
[2024-01-28] VITALS (11 sets, daily range): BP systolic 133–142; BP diastolic 56–69; PULSE 54–62; RESP 18; TEMP 36.1–36.6; O2SAT 94–98
[2024-01-28] MEDS: LEVOTHYROXINE SODIUM 50 MCG TABLET PO (06:00)
[2024-01-28 06:26] LABS: Basophils Absolute Auto 0.1 K/mm3 (0.0-0.1); Basophils Percent Auto 0.9 % (0.2-1.2); Eosinophils Absolute Auto 0.3 K/mm3 (0-0.3); Eosinophils Percent Auto 4.4 % (0-4.4); Hematocrit 31.6 % (42.0-52.0); Hemoglobin 10.3 g/dL (14.0-18.0); Immature Granulocyte Absolute 0.02 K/mm3 (0.00-0.031); Immature Granulocyte Percent A 0.3 % (0-0.5); Lymphocytes Absolute Auto 1.25 K/mm3 (0.9-3.2); Lymphocytes Percent Auto 18.3 % (18.3-44.2); Mean Corpuscular HGB Conc 32.6 g/dl (32-36); Mean Corpuscular Hemoglobin 32.2 pg (26-34); Mean Corpuscular Volume 98.8 fl (80-100); Mean Platelet Volume 10.8 fl (7.4-10.4); Monocytes Absolute Auto 0.7 K/mm3 (0.1-0.6); Monocytes Percent Auto 10.7 % (2.6-8.5); Neutrophils Absolute Auto 4.5 K/mm3 (1.3-6.7); Neutrophils Percent Auto 65.4 % (45.5-73.1); Platelet Count Result 165 k/mm3 (150-375); Red Cell Distribution Width 11.9 % (11.5-14.5); White Blood Count 6.8 K/mm3 (4.5-10.0)
[2024-01-28 06:34] LABS: Albumin Level 3.5 g/dL (3.5-5.1); Anion Gap 7 mmol/L (4-12); Blood Urea Nitrogen 37 mg/dL (9-20); Calcium 8.7 mg/dL (8.4-10.2); Carbon Dioxide 27 mmol/L (22-30); Chloride 101 mmol/L (98-107); Estimated CRCL calculation 23 ml/min; Estimated Glomerular Filt Rate 26; Glucose 171 mg/dL (65-110); Phosphorus 3.6 mg/dL (2.5-4.5); Sodium 135 mmol/L (137-145)
[2024-01-28 07:29] LABS: Glucose Point of Care 190 mg/dl (65-105)
[2024-01-28] MEDS: AMIODARONE HCL 200 MG TABLET PO (08:13)
[2024-01-28] MEDS: VITAMIN B CMPLX/VIT C/FOLIC AC 1 CAPSULE 1 CAP PO (08:13)
[2024-01-28] MEDS: SENNA/DOCUSATE SODIUM TABLET 1 TAB PO ×2 (08:13→16:40)
[2024-01-28] MEDS: METOPROLOL SUCCINATE EXT REL 100 MG TABCR PO (08:15)
[2024-01-28] MEDS: APIXABAN 5 MG TABLET PO ×2 (08:15→21:03)
[2024-01-28] MEDS: LIDOCAINE 5% PATCH 2 PATCH TRANSDERM (08:16)
[2024-01-28] MEDS: TRIAMCINOLONE ACET 0.1% OINT 15 GM TUBE 1 APPLIC TOPICAL ×2 (08:19→21:04)
[2024-01-28 11:17] LABS: Glucose Point of Care 239 mg/dl (65-105)
--- NOTE | 2024-01-28 11:34 | P.PNNP_ITS ---
Progress Note: A&P Assessment and Plan (1) ALYSSA (acute kidney injury): Code(s): N17.9 - Acute kidney failure, unspecified Status: Acute Assessment and Plan: * as noted on admission * evaluation to date noted: * renal ultrasound without obstruction * urine electrolytes prerenal * moderate proteinuria * urine eosinophils negative * CPK mildly elevated but not enough to affect kidney function * bland urine sediment * suspicion falls on contrast nephropathy * follow trend in repeat labs and UOP (2) CKD stage 3b, GFR 30-44 ml/min: Code(s): N18.32 - Chronic kidney disease, stage 3b Status: Acute Assessment and Plan: * baseline creatinine runs ~ 1.5 - 1.9mg/dl in the last year * GFR runs 30 - 40cc/min range for the last year (although prior to that, GFR was running in the 60s) * presumably due to DM, HTN, vascular disease and age-related change * follow-up on serological evaluation (3) Hypertension: Code(s): I10 - Essential (primary) hypertension Status: Chronic Assessment and Plan: * reasonable control at this time * follow trend of hemodynamics (4) Congestive heart failure: Code(s): I50.9 - Heart failure, unspecified Status: Chronic Assessment and Plan: * appears compensated at this time * diuretics on hold due to #1 * follow respiratory status (5) Type 2 diabetes mellitus: Code(s): E11.9 - Type 2 diabetes mellitus without complications Status: Acute Assessment and Plan: * follow accu-cheks * glycemic control per hospitalists Will continue to follow. Subjective Date/time seen: 01/28/24 11:34 Interval history: Follow-up for acute kidney injury/acute renal failure on chronic kidney disease. Chart reviewed -- assuming care from Dr. Encinas; creatinine/renal function stable in the last 24 hours with reasonable urine output noted; no apparent distress noted at the time of my visit. Exam Narrative: General: elderly but WD/WN male in NAD Heart: normal S1 and S2; no rub Lungs: clear to auscultation Abdomen: soft, nontender, nondistended, positive bowel sounds Extremities: no cyanosis or clubbing; no edema Skin: warm and dry Objective Data Vital Signs Vital Signs: Vital Signs Temp Pulse Resp BP Pulse Ox O2 Del Method 01/28/24 08:15 61 136/66 98 01/28/24 08:15 Room Air 01/28/24 08:00 60 01/28/24 08:15 61 01/28/24 08:13 61 01/28/24 05:57 97.8 F 56 L 18 133/56 L 94 01/28/24 04:00 57 L 01/28/24 00:00 57 L 01/27/24 20:00 56 L 14 96 Room Air 01/27/24 20:00 63 01/27/24 20:25 97.6 F 56 L 14 159/66 H 96 01/27/24 16:00 53 L 01/27/24 14:00 98.7 F 55 L 20 127/51 L 94 Intake/Output Intake/Output: Intake & Output 01/25/24 01/26/24 01/27/24 01/28/24 23:59 23:59 23:59 23:59 Intake Total 1080 1080 1630 480 Output Total 2550 700 1525 600 Balance -1470 380 105 -120 Meds/Results Medications: Active Medications Generic Name Dose Route Start Last Admin Trade Name Freq PRN Reason Stop Dose Admin
--- NOTE | 2024-01-28 11:34 | PM.PNNEP ---
Progress Note: A&P Assessment and Plan (1) ALYSSA (acute kidney injury): Code(s): N17.9 - Acute kidney failure, unspecified Status: Acute Assessment and Plan: as noted on admission evaluation to date noted: renal ultrasound without obstruction urine electrolytes prerenal moderate proteinuria urine eosinophils negative CPK mildly elevated but not enough to affect kidney function bland urine sediment suspicion falls on contrast nephropathy follow trend in repeat labs and UOP (2) CKD stage 3b, GFR 30-44 ml/min: Code(s): N18.32 - Chronic kidney disease, stage 3b Status: Acute Assessment and Plan: baseline creatinine runs ~ 1.5 - 1.9mg/dl in the last year GFR runs 30 - 40cc/min range for the last year (although prior to that, GFR was running in the 60s) presumably due to DM, HTN, vascular disease and age-related change follow-up on serological evaluation (3) Hypertension: Code(s): I10 - Essential (primary) hypertension Status: Chronic Assessment and Plan: reasonable control at this time follow trend of hemodynamics (4) Congestive heart failure: Code(s): I50.9 - Heart failure, unspecified Status: Chronic Assessment and Plan: appears compensated at this time diuretics on hold due to #1 follow respiratory status (5) Type 2 diabetes mellitus: Code(s): E11.9 - Type 2 diabetes mellitus without complications Status: Acute Assessment and Plan: follow accu-cheks glycemic control per hospitalists Will continue to follow. Subjective Date/time seen: 01/28/24 11:34 Interval history: Follow-up for acute kidney injury/acute renal failure on chronic kidney disease. Chart reviewed -- assuming care from Dr. Encinas; creatinine/renal function stable in the last 24 hours with reasonable urine output noted; no apparent distress noted at the time of my visit. Exam Narrative: General: elderly but WD/WN male in NAD Heart: normal S1 and S2; no rub Lungs: clear to auscultation Abdomen: soft, nontender, nondistended, positive bowel sounds Extremities: no cyanosis or clubbing; no edema Skin: warm and dry Objective Data Vital Signs Vital Signs: Vital Signs Temp Pulse Resp BP Pulse Ox O2 Del Method 01/28/24 08:15 61 136/66 98 01/28/24 08:15 Room Air 01/28/24 08:00 60 01/28/24 08:15 61 01/28/24 08:13 61 01/28/24 05:57 97.8 F 56 L 18 133/56 L 94 01/28/24 04:00 57 L 01/28/24 00:00 57 L 01/27/24 20:00 56 L 14 96 Room Air 01/27/24 20:00 63 01/27/24 20:25 97.6 F 56 L 14 159/66 H 96 01/27/24 16:00 53 L 01/27/24 14:00 98.7 F 55 L 20 127/51 L 94 Intake/Output Intake/Output: Intake & Output 01/25/24 01/26/24 01/27/24 01/28/24 23:59 23:59 23:59 23:59 Intake Total 1080 1080 1630 480 Output Total 2550 700 1525 600 Balance -1470 380 105 -120 Meds/Results Medications: Active Medications Generic Name Dose Route Start Last Admin Trade Name Freq PRN Reason Stop Dose Admin Acetaminophen 650 mg 01/25/24 07:21 Acetaminophen 325 Mg Tablet PO Q4H PRN Mild Pain (1-3) or Fever Amiodarone HCl 200 mg 01/26/24 09:00 01/28/24 08:13 Amiodarone Hcl 200 Mg Tablet PO 200 mg DAILY IGLESIA Administration Apixaban 5 mg 01/25/24 21:00 01/28/24 08:15 Apixaban 5 Mg Tablet PO 5 mg Q12HR IGLESIA Administration Dextrose 12.5 gm 01/25/24 07:21 Dextrose 50% 25 Gm/50 Ml Syringe IV PUSH PRN PRN Hypoglycemia Protocol Fluticasone Propionate 2 spray 01/25/24 21:00 01/27/24 20:21 Fluticasone Propionate 0.05% Na Spr 16 Gm Btl (*Bkc) NASAL 2 spray HS IGLESIA Administration Furosemide 20 mg 01/25/24 17:00 01/26/24 09:49 Furosemide Inj 40 Mg/4 Ml Vial IV PUSH Not Given BID IGLESIA Glucagon 1 mg 01/25/24 07:21 Glucagon For Inj 1 Mg Vial IM
[2024-01-28] MEDS: INSULIN ASPART (*BKC) 100 UNITS/ML SUB-Q ×3 (11:37→21:07)
--- NOTE | 2024-01-28 13:59 | PM.IMPN ---
Progress Note: A&P Assessment and Plan (1) Leukocytosis: Qualifiers: Leukocytosis type: unspecified Qualified Code(s): D72.829 - Elevated white blood cell count, unspecified Code(s): D72.829 - Elevated white blood cell count, unspecified Status: Acute (2) Acute kidney injury superimposed on CKD: Code(s): N17.9 - Acute kidney failure, unspecified; N18.9 - Chronic kidney disease, unspecified Status: Acute (3) Pseudohyponatremia: Code(s): R79.89 - Other specified abnormal findings of blood chemistry Status: Acute (4) Acute exacerbation of CHF (congestive heart failure): Qualifiers: Heart failure type: unspecified Qualified Code(s): I50.9 - Heart failure, unspecified Code(s): I50.9 - Heart failure, unspecified Status: Acute Plan This is a very pleasant 78-year-old male with a past medical history AFib on apixaban, CKD, hypothyroidism, constipation, hyperlipidemia, hypertension, [id number] diabetes mellitus, heart failure borderline reduced ejection fraction with 45-50% EF and diastolic dysfunction on surface echo on 01/25/2024. The patient is a patient of the [facility]. the patient has been off of Lasix but developed shortness of breath. He was prescribed Lasix by his primary doctor at the [facility] but it has not yet been delivered to his home. He subsequently presents to [facility] with the complaint of shortness of breath. He is admitted on 01/25/2024 for acute decompensated heart failure. BNP on admission 7000 01/26: Leukocytosis and Hypertonic Hypernatremia resolved. Patient acute decompensation has resolved but lasix is on hold due to increase in creatine ( 1.90> 2.30> 2.40). We believe patient to be in ALYSSA on CKD due to contrast vs lasix . Nephrology is consulted and ordered to check serology, immunofixation, CPK, urine protein to creatinine ratio, and a renal ultrasound. As mentioned by Network Manager its unclear why his GFR running in 30s and 40s which has fallen from 60s from last year in spite of moderately controlled HTN and DM.Discussed with Network Manager who agrees continuing holding Lasix.Monitor urine output and daily weights.Continue trend Cr and BNP. Will consider Jardiance and Spironolactone once renal function recovers. Upon discharge patient needs to be followed by PCP ,Network Manager , and Machinist Brake. January 27: Continue to appreciate Nephrology recommendations. Making adequate urine. Trend renal function. Full code. Cardiac diabetic diet. Apixaban. Stable on medical floor. Subjective Date/time seen: 01/28/24 13:59 Interval history: No acute overnight events. Patient making adequate urine. He denies any symptoms. Denies shortness of breath. Review of Systems Review of Systems: All systems reviewed & are unremarkable except as noted in HPI and below (Subjective) Exam Const: General: comfortable and no acute distress Other: A&O x3. Eyes: Pupils: Equal, round and reactive pupils present Neck: Neck: supple Resp: Effort & Inspection: normal respiratory effort Auscultation: clear to auscultation bilaterally Cardio: Rate: regular rate Rhythm: regular rhythm Heart sounds: no gallops, no murmurs and no rubs GI: GI Palp: Yes Soft to palpation and No Tenderness to palpation present (GI) Extrem: General: no edema Objective Data Vital Signs Vital Signs: Vital Signs - 24 hr 01/27/24 14:00 01/27/24 16:00 01/27/24 20:25 Temperature 98.7 F 97.6 F Pulse Rate 55 L 53 L 56 L Respiratory Rate 20 14 Blood Pressure 127/51 L 159/66 H Pulse Oximetry 94 96 Oxygen Delivery 01/27/24 20:00 01/27/24 20:00 01/28/24 00:00 Temperature Pulse Rate 63 56 L 57 L Respiratory Rate 14 Blood Pressure Pulse Oximetry 96 Oxygen Delivery Room Air 01/28/24 04:00 01/28/24 05:57 01/28/24 08:13 Temperature 97.8 F Pulse Rate 57 L 56 L 61 Respiratory Rate 18 Blood Pressure 133/56 L Pulse Oximet
[2024-01-28 16:17] LABS: Glucose Point of Care 276 mg/dl (65-105)
[2024-01-28 17:55] LABS: Alanine Aminotransferase 20 U/L (6-50); Albumin Level 3.9 g/dL (3.5-5.1); Alkaline Phosphatase 100 U/L (38-126); Anion Gap 9 mmol/L (4-12); Aspartate Amino Transferase 26 U/L (17-59); Bilirubin,Total 0.4 mg/dL (0.2-1.3); Blood Urea Nitrogen 35 mg/dL (9-20); Carbon Dioxide 27 mmol/L (22-30); Chloride 97 mmol/L (98-107); Estimated CRCL calculation 25 ml/min; Estimated Glomerular Filt Rate 29; Glucose 350 mg/dL (65-110); Potassium 4.9 mmol/L (3.4-5.0); Sodium 133 mmol/L (137-145)
[2024-01-28 18:04] LABS: NT Pro B Type Natriuretic Pept 4740 pg/mL (19.9-100)
[2024-01-28] MEDS: FLUTICASONE PROPIONATE 0.05% NA SPR 16 GM BTL (*BKC) 2 SPRAY NASAL (21:02)
[2024-01-28] MEDS: traZODone HCL 50 MG TABLET 100 MG PO (21:03)
[2024-01-29] VITALS (13 sets, daily range): BP systolic 125–166; BP diastolic 52–68; PULSE 51–62; RESP 16; TEMP 36.2–36.3; O2SAT 93–100
[2024-01-29 05:38] LABS: Hematocrit 31.7 % (42.0-52.0); Hemoglobin 10.2 g/dL (14.0-18.0); Mean Corpuscular HGB Conc 32.2 g/dl (32-36); Mean Corpuscular Hemoglobin 31.6 pg (26-34); Mean Corpuscular Volume 98.1 fl (80-100); Mean Platelet Volume 11.1 fl (7.4-10.4); Platelet Count Result 175 k/mm3 (150-375); Red Blood Count 3.23 M/mm3 (4.6-6.20); White Blood Count 6.3 K/mm3 (4.5-10.0)
[2024-01-29 05:43] LABS: Anion Gap 7 mmol/L (4-12); Blood Urea Nitrogen 34 mg/dL (9-20); Calcium 8.8 mg/dL (8.4-10.2); Carbon Dioxide 27 mmol/L (22-30); Chloride 101 mmol/L (98-107); Estimated CRCL calculation 24 ml/min; Estimated Glomerular Filt Rate 28; Glucose 169 mg/dL (65-110); Magnesium 2.3 mg/dL (1.6-2.3); Potassium 4.3 mmol/L (3.4-5.0); Sodium 135 mmol/L (137-145)
[2024-01-29] MEDS: LEVOTHYROXINE SODIUM 50 MCG TABLET PO (06:01)
[2024-01-29 06:37] LABS: Glucose Point of Care 261 mg/dl (65-105)
--- NOTE | 2024-01-29 06:52 | PC.NURSE ---
I have reviewed the LPNs charting at this time and I agree with the documentation. Will continue to monitor patient at this time.
[2024-01-29 07:49] LABS: Glucose Point of Care 215 mg/dl (65-105)
[2024-01-29] MEDS: INSULIN ASPART (*BKC) 100 UNITS/ML SUB-Q ×4 (08:06→20:26)
[2024-01-29] MEDS: METOPROLOL SUCCINATE EXT REL 100 MG TABCR PO (08:08)
[2024-01-29] MEDS: SENNA/DOCUSATE SODIUM TABLET 1 TAB PO ×2 (08:11→16:45)
[2024-01-29] MEDS: AMIODARONE HCL 200 MG TABLET PO (08:11)
[2024-01-29] MEDS: APIXABAN 5 MG TABLET PO ×2 (08:11→20:24)
[2024-01-29] MEDS: VITAMIN B CMPLX/VIT C/FOLIC AC 1 CAPSULE 1 CAP PO (08:11)
[2024-01-29] MEDS: TRIAMCINOLONE ACET 0.1% OINT 15 GM TUBE 1 APPLIC TOPICAL ×2 (08:12→20:24)
[2024-01-29] MEDS: LIDOCAINE 5% PATCH 2 PATCH TRANSDERM (08:15)
[2024-01-29 11:51] LABS: Glucose Point of Care 233 mg/dl (65-105)
--- NOTE | 2024-01-29 13:33 | P.PNNP_ITS ---
Progress Note: A&P Assessment and Plan (1) ALYSSA (acute kidney injury): Code(s): N17.9 - Acute kidney failure, unspecified Status: Acute Assessment and Plan: * as noted on admission * slow improvement noted * evaluation to date noted: * renal ultrasound without obstruction * urine electrolytes prerenal * moderate proteinuria * urine eosinophils negative * CPK mildly elevated but not enough to affect kidney function * bland urine sediment * suspicion falls on contrast nephropathy * follow trend in repeat labs and UOP (2) CKD stage 3b, GFR 30-44 ml/min: Code(s): N18.32 - Chronic kidney disease, stage 3b Status: Acute Assessment and Plan: * baseline creatinine runs ~ 1.5 - 1.9mg/dl in the last year * GFR runs 30 - 40cc/min range for the last year (although prior to that, GFR was running in the 60s) * presumably due to DM, HTN, vascular disease and age-related change * follow-up on serological evaluation - so far negative to date (3) Hypertension: Code(s): I10 - Essential (primary) hypertension Status: Chronic Assessment and Plan: * reasonable control at this time * follow trend of hemodynamics (4) Congestive heart failure: Code(s): I50.9 - Heart failure, unspecified Status: Chronic Assessment and Plan: * appears compensated at this time * diuretics on hold due to #1 * follow respiratory status (5) Type 2 diabetes mellitus: Code(s): E11.9 - Type 2 diabetes mellitus without complications Status: Acute Assessment and Plan: * follow accu-cheks * glycemic control per hospitalists Will continue to follow. Subjective Date/time seen: 01/29/24 13:33 Interval history: Follow-up for acute kidney injury/acute renal failure on chronic kidney disease. Slow and steady improvement in renal function/creatinine noted with stable urine output; no other issues/events overnight or earlier this morning; no other acute complaints voiced. Exam Narrative: General: elderly but WD/WN male in NAD Heart: normal S1 and S2; no rub Lungs: clear anteriorly Abdomen: soft, nontender, nondistended, positive bowel sounds Extremities: no cyanosis or clubbing; no edema Skin: warm and intact Objective Data Vital Signs Vital Signs: Vital Signs Temp Pulse Resp BP Pulse Ox O2 Del Method 01/29/24 12:00 97.1 F L 52 L 16 135/53 L 95 01/29/24 08:15 56 L 137/52 L 93 01/29/24 08:15 Room Air 01/29/24 08:00 57 L 01/29/24 08:11 56 L 01/29/24 08:08 56 L 01/29/24 06:00 97.4 F L 53 L 16 125/57 L 94 01/29/24 04:00 52 L 01/29/24 00:00 55 L 01/28/24 20:00 Room Air 01/28/24 20:00 54 L 01/28/24 22:00 97.3 F L 56 L 18 141/66 H 97 Intake/Output Intake/Output: Intake & Output 01/26/24 01/27/24 01/28/24 01/29/24 23:59 23:59 23:59 23:59 Intake Total 1080 1630 1700 998 Output Total 700 1525 2225 1100 Balance 380 105 -525 -102 Meds/Results Medications: Active Medications Generic Name Dose Route Start Last Admin Trade Name Freq PRN Reason Stop Dose Admin
--- NOTE | 2024-01-29 13:33 | PM.PNNEP ---
Progress Note: A&P Assessment and Plan (1) ALYSSA (acute kidney injury): Code(s): N17.9 - Acute kidney failure, unspecified Status: Acute Assessment and Plan: as noted on admission slow improvement noted evaluation to date noted: renal ultrasound without obstruction urine electrolytes prerenal moderate proteinuria urine eosinophils negative CPK mildly elevated but not enough to affect kidney function bland urine sediment suspicion falls on contrast nephropathy follow trend in repeat labs and UOP (2) CKD stage 3b, GFR 30-44 ml/min: Code(s): N18.32 - Chronic kidney disease, stage 3b Status: Acute Assessment and Plan: baseline creatinine runs ~ 1.5 - 1.9mg/dl in the last year GFR runs 30 - 40cc/min range for the last year (although prior to that, GFR was running in the 60s) presumably due to DM, HTN, vascular disease and age-related change follow-up on serological evaluation - so far negative to date (3) Hypertension: Code(s): I10 - Essential (primary) hypertension Status: Chronic Assessment and Plan: reasonable control at this time follow trend of hemodynamics (4) Congestive heart failure: Code(s): I50.9 - Heart failure, unspecified Status: Chronic Assessment and Plan: appears compensated at this time diuretics on hold due to #1 follow respiratory status (5) Type 2 diabetes mellitus: Code(s): E11.9 - Type 2 diabetes mellitus without complications Status: Acute Assessment and Plan: follow accu-cheks glycemic control per hospitalists Will continue to follow. Subjective Date/time seen: 01/29/24 13:33 Interval history: Follow-up for acute kidney injury/acute renal failure on chronic kidney disease. Slow and steady improvement in renal function/creatinine noted with stable urine output; no other issues/events overnight or earlier this morning; no other acute complaints voiced. Exam Narrative: General: elderly but WD/WN male in NAD Heart: normal S1 and S2; no rub Lungs: clear anteriorly Abdomen: soft, nontender, nondistended, positive bowel sounds Extremities: no cyanosis or clubbing; no edema Skin: warm and intact Objective Data Vital Signs Vital Signs: Vital Signs Temp Pulse Resp BP Pulse Ox O2 Del Method 01/29/24 12:00 97.1 F L 52 L 16 135/53 L 95 01/29/24 08:15 56 L 137/52 L 93 01/29/24 08:15 Room Air 01/29/24 08:00 57 L 01/29/24 08:11 56 L 01/29/24 08:08 56 L 01/29/24 06:00 97.4 F L 53 L 16 125/57 L 94 01/29/24 04:00 52 L 01/29/24 00:00 55 L 01/28/24 20:00 Room Air 01/28/24 20:00 54 L 01/28/24 22:00 97.3 F L 56 L 18 141/66 H 97 Intake/Output Intake/Output: Intake & Output 01/26/24 01/27/24 01/28/24 01/29/24 23:59 23:59 23:59 23:59 Intake Total 1080 1630 1700 998 Output Total 700 1525 2225 1100 Balance 380 105 -525 -102 Meds/Results Medications: Active Medications Generic Name Dose Route Start Last Admin Trade Name Freq PRN Reason Stop Dose Admin Acetaminophen 650 mg 01/25/24 07:21 Acetaminophen 325 Mg Tablet PO Q4H PRN Mild Pain (1-3) or Fever Amiodarone HCl 200 mg 01/26/24 09:00 01/29/24 08:11 Amiodarone Hcl 200 Mg Tablet PO 200 mg DAILY IGLESIA Administration Apixaban 5 mg 01/25/24 21:00 01/29/24 08:11 Apixaban 5 Mg Tablet PO 5 mg Q12HR IGLESIA Administration Dextrose 12.5 gm 01/25/24 07:21 Dextrose 50% 25 Gm/50 Ml Syringe IV PUSH PRN PRN Hypoglycemia Protocol Fluticasone Propionate 2 spray 01/25/24 21:00 01/28/24 21:02 Fluticasone Propionate 0.05% Na Spr 16 Gm Btl (*Bkc) NASAL 2 spray HS IGLESIA Administration Furosemide 20 mg 01/25/24 17:00 01/26/24 09:49 Furosemide Inj 40 Mg/4 Ml Vial IV PUSH Not Given BID ILGESIA Glucagon 1 mg 01/25/24 07:21 Glucagon For Inj 1
--- NOTE | 2024-01-29 15:58 | PM.IMPN ---
Progress Note: A&P Assessment and Plan (1) Leukocytosis: Qualifiers: Leukocytosis type: unspecified Qualified Code(s): D72.829 - Elevated white blood cell count, unspecified Code(s): D72.829 - Elevated white blood cell count, unspecified Status: Acute (2) Acute kidney injury superimposed on CKD: Code(s): N17.9 - Acute kidney failure, unspecified; N18.9 - Chronic kidney disease, unspecified Status: Acute (3) Pseudohyponatremia: Code(s): R79.89 - Other specified abnormal findings of blood chemistry Status: Acute (4) Acute exacerbation of CHF (congestive heart failure): Qualifiers: Heart failure type: unspecified Qualified Code(s): I50.9 - Heart failure, unspecified Code(s): I50.9 - Heart failure, unspecified Status: Acute Plan This is a very pleasant 78-year-old male with a past medical history AFib on apixaban, CKD, hypothyroidism, constipation, hyperlipidemia, hypertension, [id number] diabetes mellitus, heart failure borderline reduced ejection fraction with 45-50% EF and diastolic dysfunction on surface echo on 01/25/2024. The patient is a patient of the [place]. the patient has been off of Lasix but developed shortness of breath. He was prescribed Lasix by his primary doctor at the [facility] but it has not yet been delivered to his home. He subsequently presents to [facility] with the complaint of shortness of breath. He is admitted on 01/25/2024 for acute decompensated heart failure. BNP on admission 7000 01/26: Leukocytosis and Hypertonic Hypernatremia resolved. Patient acute decompensation has resolved but lasix is on hold due to increase in creatine ( 1.90> 2.30> 2.40). We believe patient to be in ALYSSA on CKD due to contrast vs lasix . Nephrology is consulted and ordered to check serology, immunofixation, CPK, urine protein to creatinine ratio, and a renal ultrasound. As mentioned by Field Seismologist its unclear why his GFR running in 30s and 40s which has fallen from 60s from last year in spite of moderately controlled HTN and DM.Discussed with Field Seismologist who agrees continuing holding Lasix.Monitor urine output and daily weights.Continue trend Cr and BNP. Will consider Jardiance and Spironolactone once renal function recovers. Upon discharge patient needs to be followed by PCP ,Field Seismologist , and Notched Blade Loader. January 27: Continue to appreciate Nephrology recommendations. Making adequate urine. Trend renal function. January 28: Serum creatinine has plateaued. Continue to monitor, he has good urine output. Nephrology following. Hyponatremia stable. Blood sugars reviewed. Will check hemoglobin A1c. He is on glimepiride and semaglutide home. He is euvolemic, will continue to adjust heart failure medications we approach discharge. He presented initially with shortness of breath. Full code. Cardiac diabetic diet. Apixaban. Stable on medical floor. Subjective Date/time seen: 01/29/24 15:58 Objective Data Vital Signs Vital Signs: Vital Signs - 24 hr 01/28/24 16:00 01/28/24 22:00 01/28/24 20:00 Temperature 97.3 F L Pulse Rate 60 56 L 54 L Respiratory Rate 18 Blood Pressure 141/66 H Pulse Oximetry 97 Oxygen Delivery 01/28/24 20:00 01/29/24 00:00 01/29/24 04:00 Temperature Pulse Rate 55 L 52 L Respiratory Rate Blood Pressure Pulse Oximetry Oxygen Delivery Room Air 01/29/24 06:00 01/29/24 08:08 01/29/24 08:11 Temperature 97.4 F L Pulse Rate 53 L 56 L 56 L Respiratory Rate 16 Blood Pressure 125/57 L Pulse Oximetry 94 Oxygen Delivery 01/29/24 08:00 01/29/24 08:15 01/29/24 08:15 Temperature Pulse Rate 57 L 56 L Respiratory Rate Blood Pressure 137/52 L Pulse Oximetry 93 Oxygen Delivery Room Air 01/29/24 14:00 Temperature 97.1 F L Pulse Rate 52 L Respiratory Rate 16 Blood Pressure 135/53 L Pulse Oximetry 95 Oxygen Delivery Intake/Output Intake/Out
[2024-01-29 16:35] LABS: Glucose Point of Care 279 mg/dl (65-105)
[2024-01-29] MEDS: FLUTICASONE PROPIONATE 0.05% NA SPR 16 GM BTL (*BKC) 2 SPRAY NASAL (20:23)
[2024-01-29] MEDS: traZODone HCL 50 MG TABLET 100 MG PO (20:24)
[2024-01-29 21:07] LABS: Glucose Point of Care 235 mg/dl (65-105)
[2024-01-30] VITALS (11 sets, daily range): BP systolic 141–161; BP diastolic 51–68; PULSE 52–60; RESP 16–17; TEMP 36–36.5; O2SAT 96–98
[2024-01-30] MEDS: LEVOTHYROXINE SODIUM 50 MCG TABLET PO (06:01)
[2024-01-30 06:17] LABS: Basophils Absolute Auto 0.1 K/mm3 (0.0-0.1); Basophils Percent Auto 0.9 % (0.2-1.2); Eosinophils Absolute Auto 0.2 K/mm3 (0-0.3); Eosinophils Percent Auto 4.3 % (0-4.4); Hematocrit 31.5 % (42.0-52.0); Hemoglobin 10.5 g/dL (14.0-18.0); Immature Granulocyte Absolute 0.02 K/mm3 (0.00-0.031); Immature Granulocyte Percent A 0.4 % (0-0.5); Lymphocytes Absolute Auto 1.03 K/mm3 (0.9-3.2); Lymphocytes Percent Auto 18.6 % (18.3-44.2); Mean Corpuscular HGB Conc 33.3 g/dl (32-36); Mean Corpuscular Hemoglobin 32.8 pg (26-34); Mean Corpuscular Volume 98.4 fl (80-100); Mean Platelet Volume 11.1 fl (7.4-10.4); Monocytes Absolute Auto 0.7 K/mm3 (0.1-0.6); Monocytes Percent Auto 12.4 % (2.6-8.5); Neutrophils Absolute Auto 3.5 K/mm3 (1.3-6.7); Neutrophils Percent Auto 63.4 % (45.5-73.1); Platelet Count Result 177 k/mm3 (150-375); White Blood Count 5.6 K/mm3 (4.5-10.0)
[2024-01-30 06:34] LABS: Anion Gap 7 mmol/L (4-12); Blood Urea Nitrogen 33 mg/dL (9-20); Carbon Dioxide 28 mmol/L (22-30); Chloride 101 mmol/L (98-107); Estimated CRCL calculation 24 ml/min; Estimated Glomerular Filt Rate 28; Glucose 177 mg/dL (65-110); Magnesium 2.3 mg/dL (1.6-2.3); Potassium 4.5 mmol/L (3.4-5.0); Sodium 136 mmol/L (137-145)
[2024-01-30 07:52] LABS: Glucose Point of Care 187 mg/dl (65-105)
[2024-01-30 08:18] LABS: Hemoglobin A1C 7.7 % (<5.7)
[2024-01-30] MEDS: LIDOCAINE 5% PATCH 2 PATCH TRANSDERM (09:14)
[2024-01-30] MEDS: AMIODARONE HCL 200 MG TABLET PO (09:14)
[2024-01-30] MEDS: VITAMIN B CMPLX/VIT C/FOLIC AC 1 CAPSULE 1 CAP PO (09:14)
[2024-01-30] MEDS: APIXABAN 5 MG TABLET PO ×2 (09:15→21:14)
[2024-01-30] MEDS: METOPROLOL SUCCINATE EXT REL 100 MG TABCR PO (09:15)
[2024-01-30] MEDS: SENNA/DOCUSATE SODIUM TABLET 1 TAB PO ×2 (09:15→18:17)
[2024-01-30] MEDS: TRIAMCINOLONE ACET 0.1% OINT 15 GM TUBE 1 APPLIC TOPICAL ×2 (09:16→21:15)
[2024-01-30 11:49] LABS: Glucose Point of Care 299 mg/dl (65-105)
[2024-01-30] MEDS: INSULIN ASPART (*BKC) 100 UNITS/ML SUB-Q ×2 (12:02→18:17)
--- NOTE | 2024-01-30 12:32 | PM.PNNEP ---
Progress Note: A&P Assessment and Plan (1) ALYSSA (acute kidney injury): Code(s): N17.9 - Acute kidney failure, unspecified Status: Acute Assessment and Plan: as noted on admission slow improvement noted evaluation to date noted: renal ultrasound without obstruction urine electrolytes prerenal moderate proteinuria urine eosinophils negative CPK mildly elevated but not enough to affect kidney function bland urine sediment suspicion falls on contrast nephropathy follow trend in repeat labs and UOP (2) CKD stage 3b, GFR 30-44 ml/min: Code(s): N18.32 - Chronic kidney disease, stage 3b Status: Acute Assessment and Plan: baseline creatinine runs ~ 1.5 - 1.9mg/dl in the last year GFR runs 30 - 40cc/min range for the last year (although prior to that, GFR was running in the 60s) presumably due to DM, HTN, vascular disease and age-related change follow-up on serological evaluation - so far negative to date (3) Hypertension: Code(s): I10 - Essential (primary) hypertension Status: Chronic Assessment and Plan: reasonable control at this time follow trend of hemodynamics (4) Congestive heart failure: Code(s): I50.9 - Heart failure, unspecified Status: Chronic Assessment and Plan: appears compensated at this time diuretics on hold due to #1 follow respiratory status (5) Type 2 diabetes mellitus: Code(s): E11.9 - Type 2 diabetes mellitus without complications Status: Acute Assessment and Plan: follow accu-cheks glycemic control per hospitalists Will continue to follow. Subjective Date/time seen: 01/30/24 12:32 Interval history: Follow-up for acute kidney injury/acute renal failure on chronic kidney disease. Renal function/creatinine relatively stable at this time with reasonable urine output noted as well; no issues/events overnight or earlier this morning; no apparent distress voiced. Exam Narrative: General: elderly but WD/WN male in NAD Heart: normal S1 and S2; no rub Lungs: clear anteriorly Abdomen: soft, nontender, nondistended, positive bowel sounds Extremities: no cyanosis or clubbing; no edema Skin: no rash Objective Data Vital Signs Vital Signs: Vital Signs Temp Pulse Resp BP Pulse Ox O2 Del Method 01/30/24 11:59 97.6 F 54 L 17 141/51 H 96 01/30/24 09:15 Room Air 01/30/24 08:00 55 L 01/30/24 09:15 58 L 01/30/24 09:14 58 L 01/30/24 06:00 96.8 F L 56 L 16 144/66 H 96 01/30/24 04:00 52 L 01/29/24 21:00 100 Room Air 01/30/24 00:00 56 L 01/29/24 20:00 51 L 01/29/24 20:00 Room Air 01/29/24 21:16 97.2 F L 58 L 16 166/68 H 100 Intake/Output Intake/Output: Intake & Output 01/27/24 01/28/24 01/29/24 01/30/24 23:59 23:59 23:59 23:59 Intake Total 1630 1700 1116 530 Output Total 1525 2225 1650 300 Balance 105 -948 -364 230 Meds/Results Medications: Active Medications Generic Name Dose Route Start Last Admin Trade Name Freq PRN Reason Stop Dose Admin Acetaminophen 650 mg 01/25/24 07:21 Acetaminophen 325 Mg Tablet PO Q4H PRN Mild Pain (1-3) or Fever Amiodarone HCl 200 mg 01/26/24 09:00 01/30/24 09:14 Amiodarone Hcl 200 Mg Tablet PO 200 mg DAILY IGLESIA Administration Apixaban 5 mg 01/25/24 21:00 01/30/24 09:15 Apixaban 5 Mg Tablet PO 5 mg Q12HR IGLESIA Administration Dextrose 12.5 gm 01/25/24 07:21 Dextrose 50% 25 Gm/50 Ml Syringe IV PUSH PRN PRN Hypoglycemia Protocol Fluticasone Propionate 2 spray 01/25/24 21:00 01/29/24 20:23 Fluticasone Propionate 0.05% Na Spr 16 Gm Btl (*Bkc) NASAL 2 spray HS IGLESIA Administration Furosemide 20 mg 01/25/24 17:00 01/26/24 09:49 Furosemide Inj 40 Mg/4 Ml Vial IV PUSH Not Given BID IGLESIA Glucagon 1 mg 01/25/24 07:21 Glucagon For Inj 1 Mg Vial IM
--- NOTE | 2024-01-30 12:32 | P.PNNP_ITS ---
Progress Note: A&P Assessment and Plan (1) ALYSSA (acute kidney injury): Code(s): N17.9 - Acute kidney failure, unspecified Status: Acute Assessment and Plan: * as noted on admission * slow improvement noted * evaluation to date noted: * renal ultrasound without obstruction * urine electrolytes prerenal * moderate proteinuria * urine eosinophils negative * CPK mildly elevated but not enough to affect kidney function * bland urine sediment * suspicion falls on contrast nephropathy * follow trend in repeat labs and UOP (2) CKD stage 3b, GFR 30-44 ml/min: Code(s): N18.32 - Chronic kidney disease, stage 3b Status: Acute Assessment and Plan: * baseline creatinine runs ~ 1.5 - 1.9mg/dl in the last year * GFR runs 30 - 40cc/min range for the last year (although prior to that, GFR was running in the 60s) * presumably due to DM, HTN, vascular disease and age-related change * follow-up on serological evaluation - so far negative to date (3) Hypertension: Code(s): I10 - Essential (primary) hypertension Status: Chronic Assessment and Plan: * reasonable control at this time * follow trend of hemodynamics (4) Congestive heart failure: Code(s): I50.9 - Heart failure, unspecified Status: Chronic Assessment and Plan: * appears compensated at this time * diuretics on hold due to #1 * follow respiratory status (5) Type 2 diabetes mellitus: Code(s): E11.9 - Type 2 diabetes mellitus without complications Status: Acute Assessment and Plan: * follow accu-cheks * glycemic control per hospitalists Will continue to follow. Subjective Date/time seen: 01/30/24 12:32 Interval history: Follow-up for acute kidney injury/acute renal failure on chronic kidney disease. Renal function/creatinine relatively stable at this time with reasonable urine output noted as well; no issues/events overnight or earlier this morning; no apparent distress voiced. Exam Narrative: General: elderly but WD/WN male in NAD Heart: normal S1 and S2; no rub Lungs: clear anteriorly Abdomen: soft, nontender, nondistended, positive bowel sounds Extremities: no cyanosis or clubbing; no edema Skin: no rash Objective Data Vital Signs Vital Signs: Vital Signs Temp Pulse Resp BP Pulse Ox O2 Del Method 01/30/24 11:59 97.6 F 54 L 17 141/51 H 96 01/30/24 09:15 Room Air 01/30/24 08:00 55 L 01/30/24 09:15 58 L 01/30/24 09:14 58 L 01/30/24 06:00 96.8 F L 56 L 16 144/66 H 96 01/30/24 04:00 52 L 01/29/24 21:00 100 Room Air 01/30/24 00:00 56 L 01/29/24 20:00 51 L 01/29/24 20:00 Room Air 01/29/24 21:16 97.2 F L 58 L 16 166/68 H 100 Intake/Output Intake/Output: Intake & Output 01/27/24 01/28/24 01/29/24 01/30/24 23:59 23:59 23:59 23:59 Intake Total 1630 1700 1116 530 Output Total 1525 2225 1650 300 Balance 105 -491 -961 230 Meds/Results Medications: Active Medications Generic Name Dose Route Start Last Admin Trade Name Freq PRN Reason Stop Dose Admin
--- NOTE | 2024-01-30 15:36 | PM.IMPN ---
Progress Note: A&P Assessment and Plan (1) Leukocytosis: Qualifiers: Leukocytosis type: unspecified Qualified Code(s): D72.829 - Elevated white blood cell count, unspecified Code(s): D72.829 - Elevated white blood cell count, unspecified Status: Acute (2) Acute kidney injury superimposed on CKD: Code(s): N17.9 - Acute kidney failure, unspecified; N18.9 - Chronic kidney disease, unspecified Status: Acute (3) Pseudohyponatremia: Code(s): R79.89 - Other specified abnormal findings of blood chemistry Status: Acute (4) Acute exacerbation of CHF (congestive heart failure): Qualifiers: Heart failure type: unspecified Qualified Code(s): I50.9 - Heart failure, unspecified Code(s): I50.9 - Heart failure, unspecified Status: Acute Plan This is a very pleasant 78-year-old male with a past medical history AFib on apixaban, CKD, hypothyroidism, constipation, hyperlipidemia, hypertension, [id number] diabetes mellitus, heart failure borderline reduced ejection fraction with 45-50% EF and diastolic dysfunction on surface echo on 01/25/2024. The patient is a patient of the [place]. the patient has been off of Lasix but developed shortness of breath. He was prescribed Lasix by his primary doctor at the [facility] but it has not yet been delivered to his home. He subsequently presents to [facility] with the complaint of shortness of breath. He is admitted on 01/25/2024 for acute decompensated heart failure. BNP on admission 7000 01/26: Leukocytosis and Hypertonic Hypernatremia resolved. Patient acute decompensation has resolved but lasix is on hold due to increase in creatine ( 1.90> 2.30> 2.40). We believe patient to be in ALYSSA on CKD due to contrast vs lasix . Nephrology is consulted and ordered to check serology, immunofixation, CPK, urine protein to creatinine ratio, and a renal ultrasound. As mentioned by Honest John [employer]ocket Crew Member its unclear why his GFR running in 30s and 40s which has fallen from 60s from last year in spite of moderately controlled HTN and DM.Discussed with Honest [employer] Member who agrees continuing holding Lasix.Monitor urine output and daily weights.Continue trend Cr and BNP. Will consider Jardiance and Spironolactone once renal function recovers. Upon discharge patient needs to be followed by PCP ,Honest John [employer] Crew Member , and Communications Administrator. January 27: Continue to appreciate Nephrology recommendations. Making adequate urine. Trend renal function. January 28: Serum creatinine has plateaued. Continue to monitor, he has good urine output. Nephrology following. Hyponatremia stable. Blood sugars reviewed. Will check hemoglobin A1c. He is on glimepiride and semaglutide home. He is euvolemic, will continue to adjust heart failure medications we approach discharge. He presented initially with shortness of breath. March 01: Serum creatinine again stable at 2.3. Continue to appreciate Nephrology recommendations. Hyponatremia slightly improved at 136 from 135. Continue to monitor urine output. Full code. Cardiac diabetic diet. Apixaban. Stable on medical floor. Subjective Date/time seen: 01/30/24 15:36 Interval history: Patient rest comfortably sitting upright in a chair. He has no complaints. Review of Systems Review of Systems: All systems reviewed & are unremarkable except as noted in HPI and below (Subjective) Exam Const: General: comfortable and no acute distress Other: A&O x3. Eyes: Pupils: Equal, round and reactive pupils present Neck: Neck: supple Resp: Effort & Inspection: normal respiratory effort Auscultation: clear to auscultation bilaterally Cardio: Rate: regular rate Rhythm: regular rhythm Heart sounds: no gallops, no murmurs and no rubs GI: GI Palp: Yes Soft to palpation and No Tenderness to palpation present (GI) Extrem: General: no edema Objective Data Vital Signs Vital Signs: Vital Signs - 24 hr 01/29/24 16:00 0
[2024-01-30 15:53] LABS: Immunofixation, Serum Normal pattern.
[2024-01-30 16:55] LABS: Glucose Point of Care 217 mg/dl (65-105)
[2024-01-30] MEDS: traZODone HCL 50 MG TABLET 100 MG PO (21:14)
[2024-01-30] MEDS: FLUTICASONE PROPIONATE 0.05% NA SPR 16 GM BTL (*BKC) 2 SPRAY NASAL (21:15)
[2024-01-30 23:53] LABS: Glucose Point of Care 171 mg/dl (65-105)
[2024-01-31] VITALS (7 sets, daily range): BP systolic 133–143; BP diastolic 53–64; PULSE 52–59; RESP 16; TEMP 36.4; O2SAT 96–98
[2024-01-31] MEDS: LEVOTHYROXINE SODIUM 50 MCG TABLET PO (05:51)
[2024-01-31 06:23] LABS: Hematocrit 32.7 % (42.0-52.0); Hemoglobin 10.9 g/dL (14.0-18.0); Mean Corpuscular HGB Conc 33.3 g/dl (32-36); Mean Corpuscular Hemoglobin 32.9 pg (26-34); Mean Corpuscular Volume 98.8 fl (80-100); Mean Platelet Volume 10.3 fl (7.4-10.4); Platelet Count Result 184 k/mm3 (150-375); Red Blood Count 3.31 M/mm3 (4.6-6.20); White Blood Count 5.4 K/mm3 (4.5-10.0)
[2024-01-31 07:00] LABS: Anion Gap 10 mmol/L (4-12); Blood Urea Nitrogen 33 mg/dL (9-20); Calcium 8.6 mg/dL (8.4-10.2); Carbon Dioxide 25 mmol/L (22-30); Chloride 100 mmol/L (98-107); Estimated CRCL calculation 26 ml/min; Estimated Glomerular Filt Rate 31; Glucose 171 mg/dL (65-110); Magnesium 2.3 mg/dL (1.6-2.3); Potassium 4.4 mmol/L (3.4-5.0); Sodium 135 mmol/L (137-145)
[2024-01-31 08:19] LABS: Glucose Point of Care 190 mg/dl (65-105)
[2024-01-31] MEDS: VITAMIN B CMPLX/VIT C/FOLIC AC 1 CAPSULE 1 CAP PO (08:25)
[2024-01-31] MEDS: SENNA/DOCUSATE SODIUM TABLET 1 TAB PO (08:25)
[2024-01-31] MEDS: polyethylene glycoL 3350 17 GM POWD.PACK PO (08:25)
[2024-01-31] MEDS: APIXABAN 5 MG TABLET PO (08:25)
[2024-01-31] MEDS: AMIODARONE HCL 200 MG TABLET PO (08:25)
[2024-01-31] MEDS: METOPROLOL SUCCINATE EXT REL 100 MG TABCR PO (08:25)
[2024-01-31] MEDS: LIDOCAINE 5% PATCH 2 PATCH TRANSDERM (08:26)
[2024-01-31] MEDS: TRIAMCINOLONE ACET 0.1% OINT 15 GM TUBE 1 APPLIC TOPICAL (08:28)
--- NOTE | 2024-01-31 09:32 | P.PNNP_ITS ---
Progress Note: A&P Assessment and Plan (1) ALYSSA (acute kidney injury): Code(s): N17.9 - Acute kidney failure, unspecified Status: Acute Assessment and Plan: * as noted on admission * slow improvement noted * evaluation to date noted: * renal ultrasound without obstruction * urine electrolytes prerenal * moderate proteinuria * urine eosinophils negative * CPK mildly elevated but not enough to affect kidney function * bland urine sediment * suspicion falls on contrast nephropathy * follow trend in repeat labs and UOP (2) CKD stage 3b, GFR 30-44 ml/min: Code(s): N18.32 - Chronic kidney disease, stage 3b Status: Acute Assessment and Plan: * baseline creatinine runs ~ 1.5 - 1.9mg/dl in the last year * GFR runs 30 - 40cc/min range for the last year (although prior to that, GFR was running in the 60s) * presumably due to DM, HTN, vascular disease and age-related change * follow-up on serological evaluation - so far negative to date (3) Hypertension: Code(s): I10 - Essential (primary) hypertension Status: Chronic Assessment and Plan: * reasonable control at this time * follow trend of hemodynamics (4) Congestive heart failure: Code(s): I50.9 - Heart failure, unspecified Status: Chronic Assessment and Plan: * appears compensated at this time * diuretics on hold due to #1; porbably okay to restart PRN * follow respiratory status (5) Type 2 diabetes mellitus: Code(s): E11.9 - Type 2 diabetes mellitus without complications Status: Acute Assessment and Plan: * follow accu-cheks * glycemic control per hospitalists Will continue to follow. Subjective Date/time seen: 01/31/24 09:32 Interval history: Follow-up for acute kidney injury/acute renal failure on chronic kidney disease. No new issues or problems voiced at the time of my visit; renal function/creatinine continues to slowly improve with ongoing supportive therapy/treatment; no acute complaints voiced; no apparent distress noted. Exam Narrative: General: elderly but WD/WN male in NAD Heart: normal S1 and S2; no rub Lungs: clear anteriorly Abdomen: soft, nontender, nondistended, positive bowel sounds Extremities: no cyanosis or clubbing; no edema Skin: no nodules Objective Data Vital Signs Vital Signs: Vital Signs Temp Pulse Resp BP Pulse Ox O2 Del Method 08/02/24 08:25 59 L 01/31/24 08:25 59 L 01/31/24 08:23 59 L 143/64 H 98 01/31/24 06:00 97.6 F 58 L 16 133/53 L 96 01/31/24 04:00 52 L 01/31/24 00:00 53 L 01/30/24 20:00 54 L 01/30/24 22:00 97.7 F 60 16 161/68 H 98 01/30/24 20:00 Room Air 01/30/24 16:00 53 L Intake/Output Intake/Output: Intake & Output 01/28/24 01/29/24 01/30/24 01/31/24 23:59 23:59 23:59 23:59 Intake Total 1700 1116 1320 730 Output Total 2225 1650 1450 1150 Balance -525 -534 -130 -420 Meds/Results Medications: Medications: Active Medications Generic Name Dose Route Trade Name Freq PRN Reason Acetaminophen 650 mg Acet
--- NOTE | 2024-01-31 09:32 | PM.PNNEP ---
Progress Note: A&P Assessment and Plan (1) ALYSSA (acute kidney injury): Code(s): N17.9 - Acute kidney failure, unspecified Status: Acute Assessment and Plan: as noted on admission slow improvement noted evaluation to date noted: renal ultrasound without obstruction urine electrolytes prerenal moderate proteinuria urine eosinophils negative CPK mildly elevated but not enough to affect kidney function bland urine sediment suspicion falls on contrast nephropathy follow trend in repeat labs and UOP (2) CKD stage 3b, GFR 30-44 ml/min: Code(s): N18.32 - Chronic kidney disease, stage 3b Status: Acute Assessment and Plan: baseline creatinine runs ~ 1.5 - 1.9mg/dl in the last year GFR runs 30 - 40cc/min range for the last year (although prior to that, GFR was running in the 60s) presumably due to DM, HTN, vascular disease and age-related change follow-up on serological evaluation - so far negative to date (3) Hypertension: Code(s): I10 - Essential (primary) hypertension Status: Chronic Assessment and Plan: reasonable control at this time follow trend of hemodynamics (4) Congestive heart failure: Code(s): I50.9 - Heart failure, unspecified Status: Chronic Assessment and Plan: appears compensated at this time diuretics on hold due to #1; porbably okay to restart PRN follow respiratory status (5) Type 2 diabetes mellitus: Code(s): E11.9 - Type 2 diabetes mellitus without complications Status: Acute Assessment and Plan: follow accu-cheks glycemic control per hospitalists Will continue to follow. Subjective Date/time seen: 01/31/24 09:32 Interval history: Follow-up for acute kidney injury/acute renal failure on chronic kidney disease. No new issues or problems voiced at the time of my visit; renal function/creatinine continues to slowly improve with ongoing supportive therapy/treatment; no acute complaints voiced; no apparent distress noted. Exam Narrative: General: elderly but WD/WN male in NAD Heart: normal S1 and S2; no rub Lungs: clear anteriorly Abdomen: soft, nontender, nondistended, positive bowel sounds Extremities: no cyanosis or clubbing; no edema Skin: no nodules Objective Data Vital Signs Vital Signs: Vital Signs Temp Pulse Resp BP Pulse Ox O2 Del Method 01/31/24 08:25 59 L 01/31/24 08:25 59 L 01/31/24 08:23 59 L 143/64 H 98 01/31/24 06:00 97.6 F 58 L 16 133/53 L 96 01/31/24 04:00 52 L 01/31/24 00:00 53 L 01/30/24 20:00 54 L 01/30/24 22:00 97.7 F 60 16 161/68 H 98 01/30/24 20:00 Room Air 01/30/24 16:00 53 L Intake/Output Intake/Output: Intake & Output 01/28/24 01/29/24 01/30/24 01/31/24 23:59 23:59 23:59 23:59 Intake Total 1700 1116 1320 730 Output Total 2225 1650 1450 1150 [facility] -525 -534 -130 -420 Meds/Results Medications: Medications: Active Medications Generic Name Dose Route Trade Name Freq PRN Reason Acetaminophen 650 mg Acetaminophen 325 Mg Tablet PO Q4H PRN Mild Pain (1-3) or Fever Amiodarone HCl 200 mg Amiodarone Hcl 200 Mg Tablet PO DAILY IGLESIA Apixaban 5 mg Apixaban 5 Mg Tablet PO Q12HR IGLESIA Dextrose 12.5 gm l Dextrose 50% 25 Gm/50 Ml Syringe IV PUSH PRN Hypoglycemia Protocol Fluticasone Propionate 2 spray Fluticasone Propionate 0.05% Na Spr 16 Gm Btl (*Bkc) NASAL HS IGLESIA Furosemide 20 mg Furosemide Inj 40 Mg/4 Ml Vial IV PUSH BID IGLESIA Glucagon 1 mg Glucagon For Inj 1 Mg Vial IM PRN Hypoglycemia Protocol Glucose 15 gm Glucose Oral Gel 15 Gm Of Glucse In 37.5 Gm Tube PO PRN Hypoglycemia Protocol Dextrose 1,000 mls @ 100 mls/hr Dextrose 5% 1,000 Ml IVPB PRN Hypoglycemia Protocol Insulin Aspart 2 - 5 units Insulin Aspart (*Bkc) 100 Units/Ml SUB-Q TIDWM IGLESIA Protocol
--- NOTE | 2024-01-31 09:56 | PCNWS ---
Weekly nutritional screen. Patient is tolerating current Heart healthy, diabetic consistent carb diet with adequate intake, 75-100%. No weight loss reported. No nutritional needs at this time.
[2024-01-31] MEDS: INSULIN ASPART (*BKC) 100 UNITS/ML SUB-Q (11:54)
[2024-01-31 11:55] LABS: Glucose Point of Care 235 mg/dl (65-105)
--- NOTE | 2024-01-31 13:13 | PM.DS ---
DS: Admitting Diagnosis Discharge Date January 31, 2024 Admitting Diagnosis Shortness of breath DS: Discharge Diagnosis Discharge Diagnosis (1) Acute exacerbation of CHF (congestive heart failure): Qualifiers: Heart failure type: unspecified Qualified Code(s): I50.9 - Heart failure, unspecified Code(s): I50.9 - Heart failure, unspecified Status: Acute (2) Acute kidney injury superimposed on CKD: Code(s): N17.9 - Acute kidney failure, unspecified; N18.9 - Chronic kidney disease, unspecified Status: Acute DS: Summary Hospital Course Hospital Course: This is a very pleasant 78-year-old male with a past medical history AFib on apixaban, CKD, hypothyroidism, constipation, hyperlipidemia, hypertension, [id number] diabetes mellitus, heart failure borderline reduced ejection fraction with 45-50% EF and diastolic dysfunction on surface echo on 01/25/2024. The patient is a [facility] of [facility]. the patient has been off of Lasix but developed shortness of breath. He was prescribed Lasix by his primary doctor at the [facility] but it has not yet been delivered to his home. He subsequently presents to [facility] with the complaint of shortness of breath. He is admitted on 01/25/2024 for acute decompensated heart failure. BNP on admission 7000 01/26: Leukocytosis and Hypertonic Hypernatremia resolved. Patient acute decompensation has resolved but lasix is on hold due to increase in creatine ( 1.90> 2.30> 2.40). We believe patient to be in ALYSSA on CKD due to contrast vs lasix . Nephrology is consulted and ordered to check serology, immunofixation, CPK, urine protein to creatinine ratio, and a renal ultrasound. As mentioned by Media Analyst its unclear why his GFR running in 30s and 40s which has fallen from 60s from last year in spite of moderately controlled HTN and DM.Discussed with Media Analyst who agrees continuing holding Lasix.Monitor urine output and daily weights.Continue trend Cr and BNP. Will consider Jardiance and Spironolactone once renal function recovers. Upon discharge patient needs to be followed by PCP ,Media Analyst , and Refractory Tile Helper. January 27: Continue to appreciate Nephrology recommendations. Making adequate urine. Trend renal function. January 28: Serum creatinine has plateaued. Continue to monitor, he has good urine output. Nephrology following. Hyponatremia stable. Blood sugars reviewed. Will check hemoglobin A1c. He is on glimepiride and semaglutide home. He is euvolemic, will continue to adjust heart failure medications we approach discharge. He presented initially with shortness of breath. January 29: Serum creatinine again stable at 2.3. Continue to appreciate Nephrology recommendations. Hyponatremia slightly improved at 136 from 135. Continue to monitor urine output. January 30: Serum creatinine has come down to 2.1. Discussed with Dr. Freeman. Suspect a contrast induced nephropathy. Other investigational labs are pending. Hyponatremia stable. Leukocytosis resolved. Stable for discharge to home. Ordered BMP for 3 days from now. Follow up with Dr. Encinas. Patient agrees to do so. In the setting of elevated serum creatinine and the patient being euvolemic, discharged on Lasix 20 mg p.o. q.day p.r.n.. Advised the patient if he has symptoms of swelling, shortness of breath, weight gain and used this but to notify his PCP or registered nurse obstetrics immediately. Patient agrees to the plan. Adverse effects, risk and benefits discussed. Time Spent with Patient Time attestation: Total time spent providing and/or coordinating discharge services: Time spent: Greater than 30 minutes DS: Data Data Completed and Pending Labs on day of discharge: Labs from last 24 hours 01/31/24 01/31/24 01/31/24 11:52 08:05 06:15 WBC 5.4 RBC 3.31 L Hgb 10.9 L Hct 32.7 L MCV 98.8 MCH 32.9 MCHC 33.3 RDW 12.0 Plt Count 184 MPV 10.3 Sodium 135 L [place]
[2024-01-31 17:58] LABS: Creat 24 Hr 0.04 g/24 h (0.50-2.15); Pro/Creat Ratio 341 mg/g creat (<100); Pro/Creat Ratio mg/mg 0.341 (<0.100); Protein,total, 24 Hr Ur 15 mg/24 h (<150)
[2024-02-03 16:14] LABS: Albumin 42 %
== END 2024-01-31 14:00 | disposition home or self-care (01) | DRG 291 ==
LOC: ANHED 01-25 02:30 → ANH3MEDSUR 01-25 08:17
PROVIDERS: General Practice; Internal Medicine Nephrology; Admitting Provider General Practice; Emergency Provider Student in an Organized Health Care Education/Training Program; PCP Hospitalist; Visit Provider General Practice
DX: I13.0 Hypertensive heart and chronic kidney disease with heart failure and stage 1 through stage 4 chronic kidney disease, or unspecified chronic kidney disease (principal); I50.23 Acute on chronic systolic (congestive) heart failure; N17.9 Acute kidney failure, unspecified; E87.0 Hyperosmolality and hypernatremia; N14.11 Contrast-induced nephropathy; D72.829 Elevated white blood cell count, unspecified; E11.22 Type 2 diabetes mellitus with diabetic chronic kidney disease; E78.5 Hyperlipidemia, unspecified; E03.9 Hypothyroidism, unspecified; I48.91 Unspecified atrial fibrillation; N18.32 Chronic kidney disease, stage 3b; Z79.01 Long term (current) use of anticoagulants; Z79.84 Long term (current) use of oral hypoglycemic drugs; Z79.85 Long-term (current) use of injectable non-insulin antidiabetic drugs
CPT/HCPCS: 36415; 71046; 71275; 76775; 80048; 80053; 80069; 81001; 82550; 82570; 82948; 83036; 83735; 83880; 84145; 84156; 84300; 84540; 85025; 85027; 85380; 85610; 85652; 85730; 85999; 86038; 86039; 86160; 86162; 86334; 86335; 87637; 93005; 93306; 96361; 96374; 99285; A9270; J1815; J1940; J7030; Q9967

== ENCOUNTER 2024-02-03 10:38 | Outpatient (CLI) | payer OTHER, MEDICAID, SELFPAY ==
[2024-02-03 11:15] LABS: Anion Gap 9 mmol/L (4-12); Blood Urea Nitrogen 40 mg/dL (9-20); Calcium 8.9 mg/dL (8.4-10.2); Carbon Dioxide 28 mmol/L (22-30); Chloride 100 mmol/L (98-107); Estimated Glomerular Filt Rate 29; Glucose 295 mg/dL (65-110); Potassium 5.1 mmol/L (3.4-5.0); Sodium 137 mmol/L (137-145)
== END 2024-02-03 10:39 | disposition home or self-care (01) ==
LOC: ANHLAB 10:41
PROVIDERS: Visit Provider General Practice
DX: N17.9 Acute kidney failure, unspecified (principal); N18.9 Chronic kidney disease, unspecified
CPT/HCPCS: 36415; 80048